=== PATIENT | female | born 1965 | race Caucasian/White ===

== ENCOUNTER → 2022-02-18 15:21 | Outpatient (CLI) | payer OTHER, SELFPAY ==
--- NOTE | ~2022-02-18 | MM_ITS ---
EXAMINATION: MM screening [facility] BI w chrissie HISTORY: Screening mammogram TECHNIQUE: Craniocaudal and mediolateral oblique 3-D tomosynthesis images were obtained and synthetic 2-D images were generated. CAD analysis was submitted and interpreted. COMPARISON: 06/13/2019, 11/19/2017 BREAST PARENCHYMAL COMPOSITION: There are scattered areas of fibroglandular density. FINDINGS: Scattered benign-appearing calcifications are present. There is no suspicious mass, calcifi cation, or architectural distortion to suggest malignancy in either breast. There has been no suspici ous interval change. IMPRESSION: 1. No mammographic evidence of malignancy. 2. Recommend routine screening mammography in one year. BI-RADS Category 2: Benign finding(s). Reviewed, dictated and finalized at location A.
== END ==
PROVIDERS: PCP Internal Medicine Gastroenterology; Visit Provider Internal Medicine Gastroenterology
DX: Z12.31 Encounter for screening mammogram for malignant neoplasm of breast (principal)
CPT/HCPCS: 77063; 77067

== ENCOUNTER 2022-11-20 13:03 | Inpatient (IN) | payer OTHER, SELFPAY ==
[2022-11-20] VITALS (19 sets, daily range): BP systolic 109–140; BP diastolic 54–73; PULSE 83–106; RESP 12–21; TEMP 36.4–36.6; O2SAT 90–100
--- NOTE | ~2022-11-20 | CT_ITS ---
Clinical Indication: Shortness of breath CT Scan of the Chest with Contrast: Technique: Contiguous sections were acquired throughout the chest after intravenous administration of 100 cc of Omnipaque 350. Dose reduction technique was used on this scan by utilizing automated expos ure control and iterative reconstruction technique. The dose-length product (DLP) was 258.31 mGy-cm. Findings: There is no evidence of any significant mediastinal, hilar or axillary lymphadenopathy. There is no f illing defect in the pulmonary arterial tree to suggest pulmonary embolus. There is no evidence of ao rtic dissection or aneurysm. There is no evidence of pleural or pericardial effusion. Moderate emphysema present. There is an irregular nodular opacity in the right upper lobe measuring 1 .5 x 0.8 cm in diameter (axial image 36). There is probable focal scarring at the anteromedial right upper lobe inferiorly. Images through the upper abdomen reveal no abnormalities. Impression: No evidence of pulmonary embolus, aortic dissection, or aortic aneurysm. Moderate emphysema. Probable nodular irregular areas of scarring the right upper lobe, as detailed above. As there are no prior exams for comparison, recommend follow-up CT in 3 months to assess for stability of these opac ities. Alternatively, consider PET scan. Tissue sampling could also be considered, however my degree of suspicion is relatively low, and I would probably favor less invasive, but close follow-up. Reviewed, dictated and finalized at [facility]. Impression: No evidence of pulmonary embolus, aortic dissection, or aortic aneurysm. Moderate emphysema. Probable nodular irregular areas of scarring the right upper lobe, as detailed above. As there are no prior exams for comparison, recommend follow-up CT in 3 months to assess for stability of these opacities. Alternatively, consider PET scan. Tissue sampling could also be considered, however my degree of suspicion is relatively low, and I would probably favor less invasive, but close follow-u p.
--- NOTE | ~2022-11-20 | XR_ITS ---
EXAMINATION: XR chest 1V portable DATE: 11/20/2022 13:34 INDICATION: Cough. TECHNIQUE: A single frontal view of the chest was obtained. COMPARISON: Chest 2 views 09/13/2015 FINDINGS: There are lucencies in the upper lungs, consistent with emphysema. There is mild scarring a t right lung apex. No pleural effusion or pneumothorax. The heart size is normal. IMPRESSION: 1. Emphysema. Reviewed, dictated and finalized at location A. IMPRESSION: 1. Emphysema.
--- NOTE | 2022-11-20 13:09 | ECG_ITS ---
Measurements Intervals [place] Rate: 82 P: 79 RI: 150 QRS: 62 QRSD: 86 T: 65 QT: 347 QTc: 406 Interpretive Statements SINUS RHYTHM RIGHT ATRIAL ENLARGEMENT POSSIBLE LEFT ATRIAL ENLARGEMENT LOW-VOLTAGE QRS IN LIMB LEADS BORDERLINE ECG NO PREVIOUS ECG AVAILABLE FOR COMPARISON Electronically Signed On 11-20-2022 16:54:06 CDT by Norm Stone M.D.
[2022-11-20 13:38] LABS: Basophils Percent Auto 0.5 % (0.2-1.2); Eosinophils Absolute Auto 0.1 K/mm3 (0-0.3); Eosinophils Percent Auto 3.3 % (0-4.4); Hematocrit 43.5 % (37.0-47.0); Immature Granulocyte Absolute 0.01 K/mm3 (0.00-0.031); Immature Granulocyte Percent A 0.3 % (0-0.5); Lymphocytes Absolute Auto 1.06 K/mm3 (0.9-3.2); Lymphocytes Percent Auto 26.6 % (18.3-44.2); Mean Corpuscular HGB Conc 32.2 g/dl (32-36); Mean Corpuscular Hemoglobin 29.5 pg (26-34); Mean Corpuscular Volume 91.6 fl (80-100); Mean Platelet Volume 9.7 fl (7.4-10.4); Monocytes Absolute Auto 0.5 K/mm3 (0.1-0.6); Monocytes Percent Auto 11.3 % (2.6-8.5); Neutrophils Absolute Auto 2.3 K/mm3 (1.3-6.7); Platelet Count Result 183 k/mm3 (150-375); Red Blood Count 4.75 M/mm3 (4.2-5.4); Red Cell Distribution Width 13.7 % (11.5-14.5)
[2022-11-20 13:49] LABS: Alanine Aminotransferase 18 U/L (6-35); Albumin Level 4.3 g/dL (3.5-5.1); Alkaline Phosphatase 96 U/L (38-126); Anion Gap 5 mmol/L (8-16); Aspartate Amino Transferase 28 U/L (14-36); Bilirubin,Total 0.5 mg/dL (0.2-1.3); Blood Urea Nitrogen 9 mg/dL (7-17); Calcium 8.8 mg/dL (8.4-10.2); Carbon Dioxide 31 mmol/L (22-30); Chloride 100 mmol/L (98-107); Estimated CRCL calculation 116 ml/min; Estimated Glomerular Filt Rate > 60; Glucose 100 mg/dL (65-110); Potassium 4.1 mmol/L (3.4-5.0); Sodium 136 mmol/L (137-145)
--- NOTE | 2022-11-20 14:05 | ED.URI ---
HPI - URI/Sore Throat General Chief Complaint: Upper Respiratory Infection Stated Complaint: sob Time Seen by Provider: 11/20/22 13:20 History of Present Illness HPI Narrative: Patient is a 57-year-old female with a history of chronic back pain presenting with URI symptoms. Patient states that for the last several days she has had a productive cough, nasal congestion, and shortness of breath. States that she feels like her chest is tight. She denies chest pain. No lightheadedness. Reports a subjective fever several days ago. States her PCP started her on a Z-Asael a few days ago which she has been taking as prescribed. States that she has been told that she has slight COPD in the past but she does not have an inhaler. Denies headache, numbness or weakness, abdominal pain, nausea or vomiting, leg swelling. Related Data Home Medications Medication Instructions Recorded Confirmed azithromycin 250 mg tablet 250 mg PO DAILY 11/20/22 11/20/22 carisoprodol 350 mg tablet 350 mg PO TID 11/20/22 11/21/22 gabapentin 100 mg capsule 200 mg PO Q8H 11/20/22 11/21/22 montelukast 10 mg tablet 10 mg PO PRN PRN Allergy Symptoms 11/20/22 11/20/22 trazodone 50 mg tablet 50 mg PO PRN PRN Sleep 11/20/22 11/20/22 Allergies Allergy/AdvReac Type Severity Reaction Status Date / Time Penicillins Allergy Unknown Swelling Verified 11/20/22 13:08 of Lip/Tongue/Throat Review of Systems Review of Systems: All systems reviewed & are unremarkable except as noted in HPI and below PMFSH Past Medical History Medical History Chronic back pain Chronic obstructive pulmonary disease Emphysema lung Tobacco dependence Surgical History Surgical History (Updated 11/20/22 @ 18:08 by Ade Flores PA-C) History of section History of lung biopsy Benign pathology. History of partial hysterectomy History of tubal ligation Family History Family History (Updated 11/20/22 @ 18:09 by Ade Flores PA-C) Mother Multiple myeloma Father Asthma Social History Social History Social History: Surrogate medical decision maker: Yann Lambert, son. Code status: Full code. Smoking packs per day: 1 Smoking cigarettes per day: 20.0 Years smoked: 40 Smoking pack-years: 40.00 Smoking status: Light tobacco smoker Tobacco type: cigarettes Second hand tobacco smoke exposure: No Alcohol intake: never Substance use: never Lack of Transportation: No Lack of Food: Never True Current Housing: I Have Housing Concerned About Future Housing: No Difficulty Paying Gas/Electric Bills: No Difficulty Paying for Meds: No Currently Unemployed: No Education: Associate Degree Difficulty w/ Childcare or Family Care: No Additional living arrangements comments: Lives in [place] with her dog. Spiritual care concerns: No Exam Narrative: GENERAL: Well-appearing, well-nourished, and in no acute distress. HEAD: Normocephalic, atraumatic. EYES: PERRLA and EOMI. ENT: Nares clear, no rhinorrhea or epistaxis. Mucous membranes moist. NECK: Supple. CHEST: Diminished breath sounds bilaterally with scattered wheezing, on 2 L nasal cannula saturating upper 90s HEART: Regular rate and rhythm. No murmur heard. Normal peripheral pulses. ABDOMEN: Soft, nontender, nondistended EXTREMITIES: Normal range of motion. No edema. SKIN: Warm, dry, no rash. NEURO: No focal deficits. Alert and oriented x3. PSYCH: Normal mood and affect. Course Vital Signs Vital signs: Vital Signs Temperature 97.9 F 11/20/22 13:06 Pulse Rate 95 11/20/22 13:06 Respiratory Rate 18 11/20/22 13:06 Blood Pressure 140/60 11/20/22 13:06 Pulse Oximetry 93 11/20/22 13:06 Oxygen Delivery Room Air 11/20/22 13:06 Temperature 98.3 F 11/21/22 06:00 Pulse Rate 85 11/21/22 13:33 Respi
[2022-11-20 14:30] LABS: SARS-CoV-2 RNA PCR Negative
[2022-11-20] MEDS: LEVALBUTEROL NEB 1.25 MG/3 ML INHALATION ×2 (14:30→17:25)
[2022-11-20] MEDS: IPRATROPIUM BR 0.02% INH SOLN 0.5 MG/2.5 ML VIAL INHALATION ×2 (14:31→17:25)
[2022-11-20] MEDS: methylPREDNISolone SOD SUCC 125 MG VIAL IV PUSH (14:35)
[2022-11-20] MEDS: SODIUM CHLORIDE 0.9% IV 1,000 ML 999 ML IV CONT (14:36)
[2022-11-20 15:04] LABS: Influenza A QL RT-PCR Negative (Negative); Influenza B QL RT-PCR Negative (Negative); RSV RNA, RT-PCR Negative (Negative); SARS-CoV-2 RNA PCR Negative
--- NOTE | 2022-11-20 17:30 | PM.IMHP ---
H&P: HPI History of Present Illness Date/Time: 11/20/22 17:30 Chief Complaint: Cough and shortness of breath. Narrative: This is a pleasant 57-year-old female smoker with COPD presented to the emergency department via private vehicle from home for evaluation of cough and shortness of breath. Patient provides the following history. She has not felt well for a little over week with congestion, cough productive of yellow phlegm, wheezing, and dyspnea with exertion. She has had some chills but no documented fever. She has been taking NyQuil and ibuprofen at home to treat her symptoms. Two days ago she was prescribed a Z-Asael by her primary physician but she has not gotten better and in fact she feels increasingly short of breath. She has no known sick contacts. She denies exertional chest pain, pleuritic pain, and palpitations. No nausea, vomiting, or diarrhea. She was afebrile on arrival to the emergency department with stable vital signs. She tested negative for influenza, RSV, and COVID. Chest x-ray showed findings which are consistent with emphysema. Her labs were pretty unremarkable. In the ED she was given a dose of Solu-Medrol and a DuoNeb with some improvement though she continues to feel short of breath and is wheezing and she is being admitted in this setting for further treatment. Review of Systems Review of Systems: Twelve systems were reviewed and are negative except for as per HPI. [facility] Past Medical History Medical History Chronic back pain Chronic obstructive pulmonary disease Emphysema lung Tobacco dependence Surgical History Surgical History (Updated 11/20/22 @ 18:08 by Ade Flores PA-C) History of section History of lung biopsy Benign pathology. History of partial hysterectomy History of tubal ligation Family History Family History (Updated 11/20/22 @ 18:09 by Ade Flores PA-C) Mother Multiple myeloma Father Asthma Social History Social History Social History: Surrogate medical decision maker: Yann Lambert, son. Code status: Full code. Smoking packs per day: 1 Smoking cigarettes per day: 20.0 Years smoked: 40 Smoking pack-years: 40.00 Smoking status: Light tobacco smoker Tobacco type: cigarettes Second hand tobacco smoke exposure: No Alcohol intake: never Substance use: never Lack of Transportation: No Lack of Food: Never True Current Housing: I Have Housing Concerned About Future Housing: No Difficulty Paying Gas/Electric Bills: No Difficulty Paying for Meds: No Currently Unemployed: No Education: Associate Degree Difficulty w/ Childcare or Family Care: No Additional living arrangements comments: Lives in [place] with her dog. Spiritual care concerns: No Meds Home Medications and Allergies Home Medications Medication Instructions Recorded Confirmed Type azithromycin 250 mg tablet 250 mg PO DAILY 11/20/22 11/20/22 History carisoprodol 350 mg tablet 350 mg PO QID 11/20/22 11/20/22 History gabapentin 100 mg capsule 100 mg PO QID 11/20/22 11/20/22 History montelukast 10 mg tablet 10 mg PO PRN PRN Allergy Symptoms 11/20/22 11/20/22 History trazodone 50 mg tablet 50 mg PO PRN PRN Sleep 11/20/22 11/20/22 History Allergies Allergy/AdvReac Type Severity Reaction Status Date / Time Penicillins Allergy Unknown Swelling Verified 11/20/22 13:08 of Lip/Tongue/Throat Vital Signs Vital Signs - 24 hr 11/20/22 13:06 11/20/22 14:31 11/20/22 14:45 Temperature 97.9 F Pulse Rate 95 90 93 Respiratory Rate 18 19 19 Blood Pressure 140/60 Pulse Oximetry 93 Oxygen Delivery Room Air 11/20/22 13:15 11/20/22 13:30 11/20/22 13:32 Temperature Pulse Rate 93 90 90 Respiratory Rate 18 17 Blood Pressure 119/66 Pulse Oximetry 90 97 97 Oxygen Delivery 11/20/22
--- NOTE | 2022-11-20 21:57 | ADMGEN ---
This patient, Kassandra Price, was admitted to [facility] Surg Room 325-01. Patient/family oriented to hospital policies and general routines including ID bracelet, bed and alarms, visiting hours, pain management, procedures, bathroom and other care routines, personal items, smoking policy, room service/diet, and visiting hours. Information on how to activate the Rapid Response Team has been discussed. Patient/Family are encouraged to report perceived risks to care and to ask questions if they do not understand what they are told or what they should do.
[2022-11-20] MEDS: methylPREDNISolone SOD SUCC 125 MG VIAL 60 MG IV PUSH (23:18)
[2022-11-21] VITALS (13 sets, daily range): BP systolic 104–117; BP diastolic 50–62; PULSE 78–93; RESP 16–20; TEMP 36.3–36.8; O2SAT 92–100
[2022-11-21] MEDS: methylPREDNISolone SOD SUCC 125 MG VIAL 60 MG IV PUSH ×3 (05:49→17:44)
[2022-11-21 06:56] LABS: Hematocrit 43.4 % (37.0-47.0); Hemoglobin 14.2 g/dL (12.0-15.0); Mean Corpuscular HGB Conc 32.7 g/dl (32-36); Mean Corpuscular Hemoglobin 29.2 pg (26-34); Mean Corpuscular Volume 89.3 fl (80-100); Platelet Count Result 214 k/mm3 (150-375); Red Blood Count 4.86 M/mm3 (4.2-5.4); Red Cell Distribution Width 13.7 % (11.5-14.5); White Blood Count 3.8 K/mm3 (4.5-10.0)
[2022-11-21 07:17] LABS: Anion Gap 7 mmol/L (8-16); Blood Urea Nitrogen 9 mg/dL (7-17); Calcium 9.2 mg/dL (8.4-10.2); Carbon Dioxide 28 mmol/L (22-30); Chloride 103 mmol/L (98-107); Estimated CRCL calculation 115 ml/min; Estimated Glomerular Filt Rate > 60; Glucose 152 mg/dL (65-110); Magnesium 2.2 mg/dL (1.6-2.3); Sodium 138 mmol/L (137-145)
[2022-11-21] MEDS: LEVALBUTEROL NEB 1.25 MG/3 ML INHALATION ×3 (07:33→20:35)
[2022-11-21] MEDS: IPRATROPIUM BR 0.02% INH SOLN 0.5 MG/2.5 ML VIAL INHALATION ×3 (07:33→20:35)
[2022-11-21] MEDS: GABAPENTIN 100 MG CAPSULE PO (08:15)
[2022-11-21] MEDS: carisoprodoL (*CRX) 350 MG TABLET PO ×2 (08:15→21:51)
[2022-11-21] MEDS: guaiFENesin 12 HR 600 MG TABCR 1200 MG PO ×2 (08:15→21:47)
[2022-11-21] MEDS: MONTELUKAST SODIUM 10 MG TABLET PO (08:15)
[2022-11-21] MEDS: ENOXAPARIN 40 MG/0.4 ML SYRINGE SUB-Q (08:15)
--- NOTE | 2022-11-21 12:16 | PM.IMPN ---
Progress Note: A&P Assessment and Plan (1) Acute exacerbation of chronic obstructive pulmonary disease: Code(s): J44.1 - Chronic obstructive pulmonary disease with (acute) exacerbation Status: Acute Assessment and Plan: The patient has had URI symptoms for the last several days which is likely precipitated this COPD exacerbation. She has been started on scheduled bronchodilators and Solu-Medrol. She has been started on azithromycin given increased cough and sputum production. 11/21/2022 interval history: patient is a 57-year-old female with history of smoking presented with complaint of shortness of breath is found to have exacerbation of COPD patient is being treated with methylprednisone and bronchodilator is a concern patient may have atypical pneumonia and being treated with azithromycin, patient states feeling little better compared to when she, will continue to monitor as her symptoms improved will taper Solu-Medrol,. (2) Tobacco dependence: Code(s): F17.200 - Nicotine dependence, unspecified, uncomplicated Status: Acute Assessment and Plan: Smoking cessation is imperative and was discussed. She does request a nicotine patch. (3) Chronic back pain: Code(s): M54.9 - Dorsalgia, unspecified; G89.29 - Other chronic pain Status: Acute Assessment and Plan: Continue gabapentin and carisoprodol. Subjective Date/time seen: 11/21/22 12:16 Cough and shortness of breath. Narrative: This is a pleasant 57-year-old female smoker with COPD presented to the emergency department via private vehicle from home for evaluation of cough and shortness of breath.? Patient provides the following history. She has not felt well for a little over week with congestion, cough productive of yellow phlegm, wheezing, and dyspnea with exertion. She has had some chills but no documented fever. She has been taking NyQuil and ibuprofen at home to treat her symptoms. Two days ago she was prescribed a Z-Asael by her primary physician but she has not gotten better and in fact she feels increasingly short of breath. She has no known sick contacts. She denies exertional chest pain, pleuritic pain, and palpitations. No nausea, vomiting, or diarrhea. She was afebrile on arrival to the emergency department with stable vital signs. She tested negative for influenza, RSV, and COVID. Chest x-ray showed findings which are consistent with emphysema. Her labs were pretty unremarkable. In the ED she was given a dose of Solu-Medrol and a DuoNeb with some improvement though she continues to feel short of breath and is wheezing and she is being admitted in this setting for further treatment. 11/21/2022 interval history: patient is a 57-year-old female with history of smoking presented with complaint of shortness of breath is found to have exacerbation of COPD patient is being treated with methylprednisone and bronchodilator is a concern patient may have atypical pneumonia and being treated with azithromycin, patient states feeling little better compared to when she, will continue to monitor as her symptoms improved will taper Solu-Medrol,. Review of Systems Review of Systems: Twelve systems were reviewed and are negative except for as per HPI. Exam Narrative: Patient is comfortable, NAD HEENT: eyes are clear and none icteric LUNGS: Bilateral fair entry with rhonchi and wheezing ABD: Distended Lower extremities: no edema SKIN: nonjaundiced Neuro: grossly intact. Objective Data Vital Signs Vital Signs: Vital Signs - 24 hr 11/20/22 13:06 11/20/22 14:31 11/20/22 14:45 Temperature 97.9 F Pulse Rate 95 90 93 Respiratory Rate 18 19 19 Blood Pressure 140/60 Pulse Oximetry 93 Oxygen Delivery Room Air Fraction of Inspired Oxygen 11/20/22 13:15 11/20/22 13:30 11/20/22 13:32 Temperature Pulse Rate 93 90 90 Respiratory Rate 18 17 Blood Pressure 119/66 Pulse Oximetry 90 97 97 Oxygen Delivery F
[2022-11-21] MEDS: GABAPENTIN 100 MG CAPSULE 200 MG PO ×2 (14:23→21:47)
[2022-11-22] VITALS (18 sets, daily range): BP systolic 109–115; BP diastolic 59–62; PULSE 66–107; RESP 14–22; TEMP 36.1–37.3; O2SAT 92–99
[2022-11-22] MEDS: methylPREDNISolone SOD SUCC 125 MG VIAL 60 MG IV PUSH ×5 (02:58→23:15)
[2022-11-22] MEDS: LEVALBUTEROL NEB 1.25 MG/3 ML INHALATION ×4 (03:08→19:10)
[2022-11-22] MEDS: IPRATROPIUM BR 0.02% INH SOLN 0.5 MG/2.5 ML VIAL INHALATION ×4 (03:08→19:11)
[2022-11-22 07:00] LABS: Hematocrit 40.4 % (37.0-47.0); Mean Corpuscular HGB Conc 32.2 g/dl (32-36); Mean Corpuscular Hemoglobin 28.6 pg (26-34); Platelet Count Result 199 k/mm3 (150-375); Red Blood Count 4.54 M/mm3 (4.2-5.4); Red Cell Distribution Width 13.9 % (11.5-14.5); White Blood Count 10.8 K/mm3 (4.5-10.0)
[2022-11-22] MEDS: GABAPENTIN 100 MG CAPSULE 200 MG PO ×3 (07:13→21:01)
[2022-11-22 07:20] LABS: Anion Gap 3 mmol/L (8-16); Blood Urea Nitrogen 14 mg/dL (7-17); Calcium 8.8 mg/dL (8.4-10.2); Carbon Dioxide 33 mmol/L (22-30); Chloride 104 mmol/L (98-107); Estimated CRCL calculation 96 ml/min; Estimated Glomerular Filt Rate > 60; Glucose 118 mg/dL (65-110); Magnesium 2.2 mg/dL (1.6-2.3); Sodium 140 mmol/L (137-145)
[2022-11-22] MEDS: ENOXAPARIN 40 MG/0.4 ML SYRINGE SUB-Q (08:40)
[2022-11-22] MEDS: MONTELUKAST SODIUM 10 MG TABLET PO (08:40)
[2022-11-22] MEDS: guaiFENesin 12 HR 600 MG TABCR 1200 MG PO (08:40)
--- NOTE | 2022-11-22 10:28 | PM.IMPN ---
Progress Note: A&P Assessment and Plan (1) Acute exacerbation of chronic obstructive pulmonary disease: Code(s): J44.1 - Chronic obstructive pulmonary disease with (acute) exacerbation Status: Acute Assessment and Plan: The patient has had URI symptoms for the last several days which is likely precipitated this COPD exacerbation. She has been started on scheduled bronchodilators and Solu-Medrol. She has been started on azithromycin given increased cough and sputum production. 11/22/2022 interval history: patient is a 57-year-old female with history of smoking presented with complaint of shortness of breath is found to have exacerbation of COPD patient is being treated with methylprednisone and bronchodilator is a concern patient may have atypical pneumonia and being treated with azithromycin, on 11/21 patient was feeling little better compared to when she arrived however this morning while walking to the bathroom became short of breath appears anxious, she is on RA, will give duo-neb add pulmicort nebs too, also added atarax for anxiety, will continue to monitor as her symptoms improved will taper Solu-Medrol,. (2) Tobacco dependence: Code(s): F17.200 - Nicotine dependence, unspecified, uncomplicated Status: Acute Assessment and Plan: Smoking cessation is imperative and was discussed. She does request a nicotine patch. (3) Chronic back pain: Code(s): M54.9 - Dorsalgia, unspecified; G89.29 - Other chronic pain Status: Acute Assessment and Plan: Continue gabapentin and carisoprodol. Subjective Date/time seen: 11/22/22 10:28 11/22/2022 interval history: patient is a 57-year-old female with history of smoking presented with complaint of shortness of breath is found to have exacerbation of COPD patient is being treated with methylprednisone and bronchodilator is a concern patient may have atypical pneumonia and being treated with azithromycin, on 11/21 patient was feeling little better compared to when she arrived however this morning while walking to the bathroom became short of breath appears anxious, she is on RA, will give duo-neb add pulmicort nebs too, also added atarax for anxiety, will continue to monitor as her symptoms improved will taper Solu-Medrol,. Exam Narrative: Patient is comfortable, NAD HEENT: eyes are clear and none icteric LUNGS: Bilateral fair entry with rhonchi and wheezing ABD: Distended Lower extremities: no edema SKIN: nonjaundiced Neuro: grossly intact. Objective Data Vital Signs Vital Signs: Vital Signs - 24 hr 11/21/22 12:00 11/21/22 13:23 11/21/22 13:33 Temperature Pulse Rate 85 91 85 Respiratory Rate 18 18 Blood Pressure Pulse Oximetry Oxygen Delivery Fraction of Inspired Oxygen 11/21/22 14:00 11/21/22 20:38 11/21/22 20:38 Temperature 98.1 F Pulse Rate 81 92 91 Respiratory Rate 20 18 18 Blood Pressure 112/58 L Pulse Oximetry 92 93 Oxygen Delivery Room Air Fraction of Inspired Oxygen 21 11/21/22 20:46 11/21/22 21:44 11/21/22 20:00 Temperature 97.3 F L Pulse Rate 93 85 88 Respiratory Rate 18 20 Blood Pressure 104/50 L Pulse Oximetry 100 Oxygen Delivery Fraction of Inspired Oxygen 11/21/22 20:00 11/22/22 03:14 11/22/22 03:30 Temperature Pulse Rate 85 96 94 Respiratory Rate 20 22 H 22 H Blood Pressure Pulse Oximetry 100 Oxygen Delivery Room Air Fraction of Inspired Oxygen 21 11/22/22 04:00 11/22/22 00:00 11/22/22 06:00 Temperature 98.2 F Pulse Rate 107 H 77 86 Respiratory Rate 18 Blood Pressure 115/62 Pulse Oximetry 94 Oxygen Delivery Fraction of Inspired Oxygen 11/22/22 08:38 11/22/22 08:55 11/22/22 08:55 Temperature Pulse Rate 96 85 Respiratory Rate 20 Blood Pressure Pulse Oximetry 98 97 Oxygen Delivery Room Air Fraction of Inspired Oxygen 11/22/22 09:07 11/22/22 08:01 Temperature Pulse Rate 8
[2022-11-22 11:02] LABS: Alveolar/Arterial O2 Gradient 45.3 mmHg; Base Excess ABG 1.7 mEq/l (+/-2.0); Fractional Inspired Oxygen 21 %; Oxygen Content ABG 17.9 %vol (16.0-22.0); Oxygen Saturation ABG 93.4 % (95.0-100.0); Oxyhemoglobin 91.6 % THb (90.0-100.0); PCO2 ABG 35.1 mmHg (35.0-45.0); PO2 ABG 62.4 mmHg (80.0-100.0); PO2 FiO2 Ratio Arterial Blood 2.97 %; Total Hemoglobin 13.9 g/dL (12.0-18.0)
[2022-11-22 11:05] LABS: Modified Allen's Test Pass; Site Drawn LEFT RADIAL
[2022-11-22] MEDS: ALPRAZolam (*CRX) 0.25 MG TABLET PO ×2 (11:57→21:00)
[2022-11-22] MEDS: BUDESONIDE RESPULE NEB 0.5 MG/2 ML AMP INHALATION (19:10)
[2022-11-22] MEDS: carisoprodoL (*CRX) 350 MG TABLET PO (21:00)
[2022-11-23] VITALS (10 sets, daily range): BP systolic 112–120; BP diastolic 60–62; PULSE 78–100; RESP 16–18; TEMP 36.3–36.5; O2SAT 92–97
[2022-11-23] MEDS: IPRATROPIUM BR 0.02% INH SOLN 0.5 MG/2.5 ML VIAL INHALATION ×4 (02:37→20:49)
[2022-11-23] MEDS: LEVALBUTEROL NEB 1.25 MG/3 ML INHALATION ×4 (02:39→20:49)
[2022-11-23] MEDS: GABAPENTIN 100 MG CAPSULE 200 MG PO ×3 (05:12→20:30)
[2022-11-23] MEDS: methylPREDNISolone SOD SUCC 125 MG VIAL 60 MG IV PUSH ×4 (05:12→23:24)
[2022-11-23 06:44] LABS: Hematocrit 38.9 % (37.0-47.0); Hemoglobin 12.8 g/dL (12.0-15.0); Mean Corpuscular HGB Conc 32.9 g/dl (32-36); Mean Corpuscular Hemoglobin 29.2 pg (26-34); Mean Corpuscular Volume 88.8 fl (80-100); Mean Platelet Volume 10.1 fl (7.4-10.4); Platelet Count Result 214 k/mm3 (150-375); Red Blood Count 4.38 M/mm3 (4.2-5.4); Red Cell Distribution Width 13.9 % (11.5-14.5)
[2022-11-23 06:53] LABS: Anion Gap 6 mmol/L (8-16); Blood Urea Nitrogen 10 mg/dL (7-17); Carbon Dioxide 31 mmol/L (22-30); Chloride 103 mmol/L (98-107); Estimated CRCL calculation 117 ml/min; Estimated Glomerular Filt Rate > 60; Glucose 133 mg/dL (65-110); Magnesium 2.2 mg/dL (1.6-2.3); Potassium 3.5 mmol/L (3.4-5.0); Sodium 140 mmol/L (137-145)
[2022-11-23] MEDS: BUDESONIDE RESPULE NEB 0.5 MG/2 ML AMP INHALATION ×2 (08:33→20:48)
[2022-11-23] MEDS: ENOXAPARIN 40 MG/0.4 ML SYRINGE SUB-Q (09:23)
[2022-11-23] MEDS: POTASSIUM CHLORIDE 20 MEQ TABLET 40 MEQ PO (09:23)
--- NOTE | 2022-11-23 10:20 | PM.IMPN ---
Progress Note: A&P Assessment and Plan (1) Acute exacerbation of chronic obstructive pulmonary disease: Code(s): J44.1 - Chronic obstructive pulmonary disease with (acute) exacerbation Status: Acute Assessment and Plan: The patient has had URI symptoms for the last several days which is likely precipitated this COPD exacerbation. She has been started on scheduled bronchodilators and Solu-Medrol. She has been started on azithromycin given increased cough and sputum production. 11/23/2022 interval history: patient is a 57-year-old female with history of smoking presented with complaint of shortness of breath is found to have exacerbation of COPD patient is being treated with methylprednisone and bronchodilator is a concern patient may have atypical pneumonia and being treated with azithromycin, on 11/21 patient was feeling little better compared to when she arrived however on 11/21 morning while walking to the bathroom became short of breath appears anxious, she was on RA, gave duo-neb added pulmicort nebs too, also added atarax for anxiety, today patient states CC still feels short of breath unable to take a deep breath, will continue present management and monitor 1 more day, will continue to monitor as her symptoms improved will taper Solu-Medrol, may discharge patient tomorrow (2) Tobacco dependence: Code(s): F17.200 - Nicotine dependence, unspecified, uncomplicated Status: Acute Assessment and Plan: Smoking cessation is imperative and was discussed. She does request a nicotine patch. (3) Chronic back pain: Code(s): M54.9 - Dorsalgia, unspecified; G89.29 - Other chronic pain Status: Acute Assessment and Plan: Continue gabapentin and carisoprodol. Subjective Date/time seen: 11/23/22 10:20 11/23/2022 interval history: patient is a 57-year-old female with history of smoking presented with complaint of shortness of breath is found to have exacerbation of COPD patient is being treated with methylprednisone and bronchodilator is a concern patient may have atypical pneumonia and being treated with azithromycin, on 11/21 patient was feeling little better compared to when she arrived however on 11/21 morning while walking to the bathroom became short of breath appears anxious, she was on RA, gave duo-neb added pulmicort nebs too, also added atarax for anxiety, today patient states CC still feels short of breath unable to take a deep breath, will continue present management and monitor 1 more day, will continue to monitor as her symptoms improved will taper Solu-Medrol, may discharge patient tomorrow Exam Narrative: Patient is comfortable, NAD HEENT: eyes are clear and none icteric LUNGS: Bilateral fair entry with rhonchi and wheezing ABD: Distended Lower extremities: no edema SKIN: nonjaundiced Neuro: grossly intact. Objective Data Vital Signs Vital Signs: Vital Signs - 24 hr 11/22/22 12:02 11/22/22 14:05 11/22/22 15:26 Temperature 99.1 F Pulse Rate 92 85 84 Respiratory Rate 18 20 Blood Pressure 109/61 Pulse Oximetry 92 Oxygen Delivery Fraction of Inspired Oxygen 11/22/22 15:43 11/22/22 19:12 11/22/22 19:15 Temperature Pulse Rate 85 66 Respiratory Rate 20 16 Blood Pressure Pulse Oximetry 99 Oxygen Delivery Room Air Fraction of Inspired Oxygen 11/22/22 20:00 11/22/22 22:00 11/23/22 02:39 Temperature 96.9 F L Pulse Rate 66 86 78 Respiratory Rate 16 14 16 Blood Pressure 114/59 L Pulse Oximetry 99 92 Oxygen Delivery Room Air Fraction of Inspired Oxygen 21 11/23/22 06:00 11/23/22 08:35 11/23/22 08:35 Temperature 97.3 F L Pulse Rate 95 87 Respiratory Rate 18 16 Blood Pressure 120/62 Pulse Oximetry 94 97 Oxygen Delivery Room Air Fraction of Inspired Oxygen 11/23/22 08:50 11/23/22 08:00 Temperature Pulse Rate 89 Respiratory Rate 16 Blood Pressure Pulse Oximetry Oxygen Delivery Ro
--- NOTE | 2022-11-23 11:55 | WPDCDIQUERY2 ---
CDI Query Clarified Diagnosis Clarified Diagnosis: Patient receiving Azithromycin IV Q 24 hours. Atypical Pneumonia is noted in the assessment and plan. Patient presents with productive cough, shortness of breath and chest tightness. Please clarify if Pneumonia has been ruled in, ruled out, or unable to determine. <Roxana Burgos RN - Last Filed: 11/23/22 11:59> Provider Comments Patient with history of COPD and CTA of the chest did not show any pneumonia or consolidation most likely patient had atypical pneumonia <Selina Cramer MD - Last Filed: 12/06/22 16:33>
[2022-11-23] MEDS: AZITHROMYCIN 250 MG TABLET 500 MG PO (20:30)
[2022-11-23] MEDS: carisoprodoL (*CRX) 350 MG TABLET PO (20:34)
[2022-11-24] VITALS (21 sets, daily range): BP systolic 116–128; BP diastolic 56–72; PULSE 78–99; RESP 14–20; TEMP 36.2–36.6; O2SAT 86–94
[2022-11-24] MEDS: GABAPENTIN 100 MG CAPSULE 200 MG PO ×3 (05:30→20:47)
[2022-11-24] MEDS: methylPREDNISolone SOD SUCC 125 MG VIAL 60 MG IV PUSH ×4 (05:30→23:19)
[2022-11-24] MEDS: IPRATROPIUM BR 0.02% INH SOLN 0.5 MG/2.5 ML VIAL INHALATION ×3 (05:36→20:38)
[2022-11-24] MEDS: LEVALBUTEROL NEB 1.25 MG/3 ML INHALATION ×3 (05:37→20:38)
[2022-11-24 06:21] LABS: Hematocrit 40.6 % (37.0-47.0); Hemoglobin 13.5 g/dL (12.0-15.0); Mean Corpuscular HGB Conc 33.3 g/dl (32-36); Mean Corpuscular Hemoglobin 29.3 pg (26-34); Mean Corpuscular Volume 88.1 fl (80-100); Platelet Count Result 232 k/mm3 (150-375); Red Blood Count 4.61 M/mm3 (4.2-5.4); Red Cell Distribution Width 14.2 % (11.5-14.5); White Blood Count 11.7 K/mm3 (4.5-10.0)
[2022-11-24 06:25] LABS: Anion Gap 7 mmol/L (8-16); Blood Urea Nitrogen 16 mg/dL (7-17); Calcium 9.1 mg/dL (8.4-10.2); Carbon Dioxide 30 mmol/L (22-30); Chloride 100 mmol/L (98-107); Estimated CRCL calculation 96 ml/min; Estimated Glomerular Filt Rate > 60; Glucose 127 mg/dL (65-110); Magnesium 2.3 mg/dL (1.6-2.3); Sodium 137 mmol/L (137-145)
[2022-11-24] MEDS: SODIUM CHLORIDE NASAL GEL 14.1 GM 1 APPLIC NASAL ×2 (09:11→20:46)
[2022-11-24] MEDS: SALINE 0.65% NAS SOLN 44 ML BTL 1 SPRAY NASAL ×2 (09:11→20:46)
[2022-11-24] MEDS: ENOXAPARIN 40 MG/0.4 ML SYRINGE SUB-Q (09:11)
[2022-11-24] MEDS: BUDESONIDE RESPULE NEB 0.5 MG/2 ML AMP INHALATION ×2 (09:44→20:38)
--- NOTE | 2022-11-24 11:37 | PM.IMPN ---
Progress Note: A&P Assessment and Plan (1) Acute exacerbation of chronic obstructive pulmonary disease: Code(s): J44.1 - Chronic obstructive pulmonary disease with (acute) exacerbation Status: Acute Assessment and Plan: The patient has had URI symptoms for the last several days which is likely precipitated this COPD exacerbation. She has been started on scheduled bronchodilators and Solu-Medrol. She has been started on azithromycin given increased cough and sputum production. 11/24/2022 interval history: patient is a 57-year-old female with history of smoking presented with complaint of shortness of breath is found to have exacerbation of COPD patient is being treated with methylprednisone and bronchodilator is a concern patient may have atypical pneumonia and being treated with azithromycin, on 11/21 patient was feeling little better compared to when she arrived however on 11/21 morning while walking to the bathroom became short of breath appears anxious, she was on RA, gave duo-neb added pulmicort nebs too, also added atarax for anxiety, today patient states she still feels short of breath unable to take a deep breath, her Oxygen saturarion is dropping with at rest and with exertion, will do CTA of chest which did not show PE or pneumonia however CT scna is concerning for possible nodule, will consult pulomonologist, and further recommendation to follow, will continue present management and monitor 1 more day, will continue to monitor, may discharge patient tomorrow (2) Tobacco dependence: Code(s): F17.200 - Nicotine dependence, unspecified, uncomplicated Status: Acute Assessment and Plan: Smoking cessation is imperative and was discussed. She does request a nicotine patch. (3) Chronic back pain: Code(s): M54.9 - Dorsalgia, unspecified; G89.29 - Other chronic pain Status: Acute Assessment and Plan: Continue gabapentin and carisoprodol. Subjective Date/time seen: 11/24/22 11:37 The patient has had URI symptoms for the last several days which is likely precipitated this COPD exacerbation. She has been started on scheduled bronchodilators and Solu-Medrol. She has been started on azithromycin given increased cough and sputum production. 11/24/2022 interval history: patient is a 57-year-old female with history of smoking presented with complaint of shortness of breath is found to have exacerbation of COPD patient is being treated with methylprednisone and bronchodilator is a concern patient may have atypical pneumonia and being treated with azithromycin, on 11/21 patient was feeling little better compared to when she arrived however on 11/21 morning while walking to the bathroom became short of breath appears anxious, she was on RA, gave duo-neb added pulmicort nebs too, also added atarax for anxiety, today patient states she still feels short of breath unable to take a deep breath, her Oxygen saturarion is dropping with at rest and with exertion, will do CTA of chest which did not show PE or pneumonia however CT scna is concerning for possible nodule, will consult pulomonologist, and further recommendation to follow, will continue present management and monitor 1 more day, will continue to monitor, may discharge patient tomorrow Exam Narrative: Patient is comfortable, NAD HEENT: eyes are clear and none icteric LUNGS: Bilateral fair entry with rhonchi and wheezing ABD: Distended Lower extremities: no edema SKIN: nonjaundiced Neuro: grossly intact. Objective Data Vital Signs Vital Signs: Vital Signs - 24 hr 11/23/22 14:32 11/23/22 14:00 11/23/22 14:47 Temperature 97.7 F Pulse Rate 88 89 100 Respiratory Rate 16 16 16 Blood Pressure 113/60 Pulse Oximetry 93 Oxygen Delivery Oxygen Flow Rate 11/23/22 20:51 11/23/22 20:00 11/23/22 21:07 Temperature Pulse Rate 92 94 Respiratory Rate 16 16 Blood Pressure Pulse Oximetry Oxygen Delivery Jaquelin
[2022-11-24] MEDS: CIPROFLOXACIN 500 MG TAB PO ×2 (15:25→23:19)
--- NOTE | 2022-11-24 15:33 | HOMEO2EVAL ---
Evaluation was performed at [facility] Home Oxygen Evaluation RC: Home Oxygen (O2) Evaluation Start: 11/24/22 07:51 Freq: ONCE Status: Active Protocol: RPE Activity Type Activity Date Activity User E-sign Co-sign Detail Recorded Client Recorded Date Recorded By Document 11/24/22 15:00 RODY [email or web address] 11/24/22 15:33 RODY Document 11/24/22 15:01 RODY [email or web address] 11/24/22 15:33 RODY Document 11/24/22 15:02 RODY [email or web address] 11/24/22 15:33 RODY Document 11/24/22 15:03 RODY [email or web address] 11/24/22 15:33 RODY Document 11/24/22 15:15 RODY [email or web address] 11/24/22 15:33 RODY 11/24/22 11/24/22 11/24/22 15:00 15:01 15:02 Home O2 Evaluation [Oxygen] -Test Phase Resting Exercise Exercise -Oxygen Delivery Room Air Room Air Nasal Cannula -Oxygen Flow Rate (L/min) 1 [Pulse Oximetry] -Pulse Oximetry (90-100 %) 90 86 L 87 L [Charges] -Treatment Charges O2 Evaluation - O2 Evaluation - Inpatient Inpatient 11/24/22 11/24/22 15:03 15:15 Home O2 Evaluation [Oxygen] -Test Phase Exercise Resting -Oxygen Delivery Nasal Cannula Room Air -Oxygen Flow Rate (L/min) 2 [Pulse Oximetry] -Pulse Oximetry (90-100 %) 89 L 91 [Charges] -Treatment Charges
--- NOTE | 2022-11-24 15:38 | PCRCNOTE ---
PT REQUIRES 2L HOME O2 WITH ACTIVITY. PT WANTS A POC ONLY. VIEMED WILL BE DME IF SHE D/C HOME WITH HOME O2. PT ISN'T SURE IF SHE WILL USE THE HOME O2 OR WANTS IT IN THE HOME. AWAITING FURTHER DETAILS ON D/C
[2022-11-24] MEDS: ALPRAZolam (*CRX) 0.25 MG TABLET PO (20:46)
[2022-11-24] MEDS: carisoprodoL (*CRX) 350 MG TABLET PO (20:47)
[2022-11-25] VITALS (7 sets, daily range): BP systolic 124; BP diastolic 56; PULSE 79–98; RESP 16–18; TEMP 36.4; O2SAT 92
[2022-11-25] MEDS: LEVALBUTEROL NEB 1.25 MG/3 ML INHALATION ×2 (03:12→08:38)
[2022-11-25] MEDS: IPRATROPIUM BR 0.02% INH SOLN 0.5 MG/2.5 ML VIAL INHALATION ×2 (03:13→08:38)
[2022-11-25] MEDS: methylPREDNISolone SOD SUCC 125 MG VIAL 60 MG IV PUSH (05:15)
[2022-11-25] MEDS: GABAPENTIN 100 MG CAPSULE 200 MG PO (05:15)
[2022-11-25 06:06] LABS: Hematocrit 41.3 % (37.0-47.0); Hemoglobin 13.5 g/dL (12.0-15.0); Mean Corpuscular HGB Conc 32.7 g/dl (32-36); Mean Corpuscular Hemoglobin 29.7 pg (26-34); Mean Platelet Volume 9.5 fl (7.4-10.4); Platelet Count Result 244 k/mm3 (150-375); Red Blood Count 4.54 M/mm3 (4.2-5.4); Red Cell Distribution Width 14.4 % (11.5-14.5); White Blood Count 9.8 K/mm3 (4.5-10.0)
[2022-11-25 06:42] LABS: Anion Gap 9 mmol/L (8-16); Blood Urea Nitrogen 15 mg/dL (7-17); Calcium 8.6 mg/dL (8.4-10.2); Carbon Dioxide 29 mmol/L (22-30); Chloride 100 mmol/L (98-107); Estimated CRCL calculation 96 ml/min; Estimated Glomerular Filt Rate > 60; Glucose 130 mg/dL (65-110); Magnesium 2.4 mg/dL (1.6-2.3); Potassium 3.7 mmol/L (3.4-5.0); Sodium 138 mmol/L (137-145)
[2022-11-25] MEDS: BUDESONIDE RESPULE NEB 0.5 MG/2 ML AMP INHALATION (08:38)
--- NOTE | 2022-11-25 09:36 | PM.DS ---
DS: Admitting Diagnosis Discharge Date 11/25/2022 Admitting Diagnosis Cough and shortness of breath. DS: Discharge Diagnosis Discharge Diagnosis (1) Acute exacerbation of chronic obstructive pulmonary disease: Code(s): J44.1 - Chronic obstructive pulmonary disease with (acute) exacerbation Status: Acute Assessment and Plan: The patient has had URI symptoms for the last several days which is likely precipitated this COPD exacerbation. She has been started on scheduled bronchodilators and Solu-Medrol. She has been started on azithromycin given increased cough and sputum production. 11/24/2022 interval history: patient is a 57-year-old female with history of smoking presented with complaint of shortness of breath is found to have exacerbation of COPD patient is being treated with methylprednisone and bronchodilator is a concern patient may have atypical pneumonia and being treated with azithromycin, on 11/21 patient was feeling little better compared to when she arrived however on 11/21 morning while walking to the bathroom became short of breath appears anxious, she was on RA, gave duo-neb added pulmicort nebs too, also added atarax for anxiety, today patient states she still feels short of breath unable to take a deep breath, her Oxygen saturarion is dropping with at rest and with exertion, will do CTA of chest which did not show PE or pneumonia however CT scna is concerning for possible nodule, will consult pulomonologist, and further recommendation to follow, will continue present management and monitor 1 more day, will continue to monitor, may discharge patient tomorrow (2) Tobacco dependence: Code(s): F17.200 - Nicotine dependence, unspecified, uncomplicated Status: Acute Assessment and Plan: Smoking cessation is imperative and was discussed. She does request a nicotine patch. (3) Chronic back pain: Code(s): M54.9 - Dorsalgia, unspecified; G89.29 - Other chronic pain Status: Acute Assessment and Plan: Continue gabapentin and carisoprodol. DS: Summary Hospital Course Reason for hospitalization: Cough and shortness of breath. Narrative: This is a pleasant 57-year-old female smoker with COPD presented to the emergency department via private vehicle from home for evaluation of cough and shortness of breath.? Patient provides the following history. She has not felt well for a little over week with congestion, cough productive of yellow phlegm, wheezing, and dyspnea with exertion. She has had some chills but no documented fever. She has been taking NyQuil and ibuprofen at home to treat her symptoms. Two days ago she was prescribed a Z-Asael by her primary physician but she has not gotten better and in fact she feels increasingly short of breath. She has no known sick contacts. She denies exertional chest pain, pleuritic pain, and palpitations. No nausea, vomiting, or diarrhea. She was afebrile on arrival to the emergency department with stable vital signs. She tested negative for influenza, RSV, and COVID. Chest x-ray showed findings which are consistent with emphysema. Her labs were pretty unremarkable. In the ED she was given a dose of Solu-Medrol and a DuoNeb with some improvement though she continues to feel short of breath and is wheezing and she is being admitted in this setting for further treatment. Hospital Course: patient is a 57-year-old female with history of smoking presented with complaint of shortness of breath is found to have exacerbation of COPD patient is being treated with methylprednisone and bronchodilator is a concern patient may have atypical pneumonia and being treated with azithromycin, on 11/21 patient was? feeling little better compared to when she arrived however on 11/21? morning while walking to the bathroom became short of breath appears anxious, she was on RA, gave duo-neb added pulmicort nebs too, also added atarax for anxiety, today patient states she? still fe
--- NOTE | 2022-11-25 10:08 | PCRCNOTE ---
PT DECLINED HOME OXYGEN.
== END 2022-11-25 10:30 | disposition home or self-care (01) | DRG 192 ==
LOC: ANHED 13:32 → ANH3MEDSUR 19:11
PROVIDERS: Emergency Medicine; Physician Assistant; Admitting Provider Hospitalist; Emergency Provider Emergency Medicine; PCP Internal Medicine Gastroenterology; Visit Provider Family Medicine
DX: J44.1 Chronic obstructive pulmonary disease with (acute) exacerbation (principal); M54.9 Dorsalgia, unspecified; G89.29 Other chronic pain; Z20.822 Contact with and (suspected) exposure to COVID-19; F17.210 Nicotine dependence, cigarettes, uncomplicated; R09.02 Hypoxemia; F41.9 Anxiety disorder, unspecified
CPT/HCPCS: 36415; 36600; 71045; 71275; 80048; 80053; 82805; 83605; 83735; 85025; 85027; 87040; 87070; 87077; 87186; 87205; 87637; 93005; 94618; 94640; 94667; 96361; 96365; 96372; 96374; 96375; 96376; 99285; A9270; G0378; J0456; J1650; J2930; J7030; Q9967; U0003; U0005

== ENCOUNTER 2023-01-28 07:56 | Outpatient (CLI) | payer OTHER, SELFPAY ==
--- NOTE | ~2023-01-28 | XR_ITS ---
EXAMINATION: XR chest 2V 01/28/2023 08:14 INDICATION: Shortness of breath. Bilateral leg swelling PROCEDURE: 2 view chest COMPARISON: 11/20/2022 FINDINGS: The lungs are clear. There is apical pleural thickening/scarring. The cardiomediastinal sue houette is within normal limits. There are no pleural effusions. There is no pneumothorax suspected . IMPRESSION: 1: NO ACUTE CARDIOPULMONARY DISEASE. Reviewed, dictated and finalized at location L.
== END 2023-01-28 07:57 ==
LOC: MICIMG 07:58
PROVIDERS: PCP Internal Medicine Gastroenterology; Visit Provider Internal Medicine Gastroenterology
DX: R06.02 Shortness of breath (principal); R60.0 Localized edema
CPT/HCPCS: 71046

== ENCOUNTER → 2023-04-16 12:18 | Outpatient (CLI) | payer OTHER, SELFPAY ==
--- NOTE | ~2023-04-16 | MM_ITS ---
EXAMINATION: MM screening radha BI w chrissie HISTORY: Screening mammogram TECHNIQUE: Craniocaudal and mediolateral oblique 3-D tomosynthesis images were obtained and synthetic 2-D images were generated. CAD analysis was submitted and interpreted. COMPARISON: 02/18/2022, 06/13/2019 bilateral screening mammogram examinations BREAST PARENCHYMAL COMPOSITION: There are scattered areas of fibroglandular density. FINDINGS: There is no evidence of suspicious mass, calcification, or architectural distortion to sugg est malignancy in either breast. There has been no suspicious interval change. IMPRESSION: 1. No mammographic evidence of malignancy. 2. Recommend routine screening mammography in one year. BI-RADS Category 1: Negative Reviewed, dictated and finalized at location A.
== END ==
PROVIDERS: PCP Internal Medicine Gastroenterology; Visit Provider Internal Medicine Gastroenterology
DX: Z12.31 Encounter for screening mammogram for malignant neoplasm of breast (principal)
CPT/HCPCS: 77063; 77067

== ENCOUNTER 2024-09-12 12:36 | Outpatient (CLI) | payer MEDICARE, SELFPAY ==
--- NOTE | ~2024-09-12 | MM_ITS ---
EXAMINATION: MM screening radha BI w chrissie HISTORY: Screening TECHNIQUE: Craniocaudal and mediolateral oblique 3-D tomosynthesis images were obtained and synthetic 2-D images were generated. CAD analysis was submitted and interpreted. COMPARISON: Comparison to multiple prior studies sequentially, with oldest reviewed study dated 11/19. BREAST PARENCHYMAL COMPOSITION: Not dense: There are scattered areas of fibroglandular density. FINDINGS: There is no evidence of suspicious mass, calcification, or architectural distortion to sugg est malignancy in either breast. There has been no suspicious interval change. IMPRESSION: 1. No mammographic evidence of malignancy. 2. Recommend routine screening mammography in one year. BI-RADS Category 1: Negative Reviewed, dictated and finalized at location B. [facility]
== END 2024-09-12 12:37 | disposition home or self-care (01) ==
LOC: MICIMG 12:45
PROVIDERS: PCP Internal Medicine; Visit Provider Internal Medicine Gastroenterology
DX: Z12.31 Encounter for screening mammogram for malignant neoplasm of breast (principal)
CPT/HCPCS: 77063; 77067

== ENCOUNTER 2025-05-29 12:00 | Outpatient (CLI) | payer MEDICARE, MEDICAID, SELFPAY ==
--- NOTE | ~2025-05-29 | PE_ITS ---
EXAMINATION: PET skull to mid thigh DATE: 05/29/2025 14:11 INDICATION: Mass of upper lobe of right lung. TECHNIQUE: Blood glucose level was 85 mg/dL. 10.613 mCi of 18-fluorodeoxyglucose (18-FDG) was administered i.v. Low dose computed tomography (CT) images were acquired from the base of the brain to the proximal thighs for attenuation correction and anatomic localization. Automated exposure control was employed. Dose-length product (DLP) was 851 mGy-cm. Positron emission tomography (PET) images were acquired in the same distribution. COMPARISON: Chest CT 11/24/2022 FINDINGS: Head/neck: There are no pathologically enlarged lymph nodes. Chest: There is a 5.7 x 4.4 cm mass in right lung upper lobe with maximum SUV of 29. There is moderate emphysema. There is mild scarring at left lung apex. No pleural effusion. The heart size is normal. There are coronary artery calcifications. No pericardial effusion. There are ill-defined enlarged right hilar lymph nodes with maximum SUV of 10.9. Abdomen/pelvis/proximal thighs: The liver, gallbladder, spleen, pancreas, adrenal glands, and kidneys are normal. There are no dilated loops of bowel. The appendix is normal. There are no pathologically enlarged lymph nodes. There is no free intraperitoneal fluid. There is no osseous malignancy. IMPRESSION: 1. 5.7 x 4.4 cm mass in right lung upper lobe with increased activity, consistent with primary bronchogenic carcinoma. 2. Enlarged right hilar lymph nodes with increased activity, consistent with metastatic disease. 3. Moderate emphysema. Reviewed, dictated and finalized at location E. IMPRESSION: 1. 5.7 x 4.4 cm mass in right lung upper lobe with increased activity, consiste nt with primary bronchogenic carcinoma. 2. Enlarged right hilar lymph nodes with increased activity, consistent with me tastatic disease. 3. Moderate emphysema.
--- OUTSIDE RECORDS SUMMARY | 2025-05-29 14:52 | XMS_ITS | Clinical Summary ---
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 Gender Identity Not on file Sexual Orientation Not on file Plan of Treatment Health Maintenance Due Date Last Done Comments Hepatitis C Virus (HCV) Screening 1964 TdaP Immunization 1964 Pap Smear 1985 Cervical Cancer Screening (CCS) 1994 HPV/Cotest 1994 Cologuard 2009 Colonoscopy 2009 Colorectal Cancer Screening 2009 Immunochemical Fecal Occult Blood 2009 Pneumococcal Immunization (5 0+ years) (1 of 1 - PCV) 2014 Zoster Immunization (1 of 2) 2014 Influenza Immunization (#1) 2025 SARS-COV-2 Immunization ( - season) 2025 Respiratory Syncytial Virus (RSV) Immunization (Adult) (1 - 1-dose 75+ series) 2039 Hepatitis B Immunization Aged Out No longer eligible based on patient's age to complete this topic Human Papillomavirus (HPV) Immunization Aged Out No longer eligible b ased on patient's age to complete this topic Meningococcal Immunization (ACWY) Aged Out No longer eligible based on patient's age to complete this topic Rotavirus Immunization Aged Out No lo nger eligible based on patient's age to complete this topic
--- OUTSIDE RECORDS SUMMARY | 2025-05-29 14:52 | XMS_ITS | Clinical Summary ---
Author Organization [facility] [id number] [place] [address] Care Team Providers Care Dog Control Officer Name Role Phone Gege Robertson MD Primary Care Provider [phone] Allergies Active Allergy Reactions Criticality Noted Date Comments Penicillins Hives,Swelling Medium 07/11/2020 Medications gabapentin (NEURONTIN) 100 mg capsule Take by mouth 3 (three) times a day Active carisoprodoL (SOMA) 350 mg tablet Take 350 mg by mouth 4 (four) times a day as needed Active fluticasone propion-salmete roL (ADVAIR DISKUS) 250-50 mcg/dose diskus inhaler Inhale 1 puff 2 (two) times a day Rinse mouth with water after use. Do not swallow. Active albuterol (PROAIR RESPICLICK) 90 mcg/actuation inhaler Inhale 2 puffs every 6 (six) hours as needed for wheezing Active traMADoL (ULTRAM) 50 mg tablet Take 1 tablet (50 mg total) by mouth every 8 (eight) hours as needed for pain 20 tablet 07/14/2020 Active Active Problems Patient Care Coordination No te Formatting of this note migh t be different from the original. Ms. Kassandra Price is a 54-year-old with a lung nodules. She initially was being worked up for back surgery. During his workup she had an abnormal EKG. She was subsequently evaluated by a city director who ordered a chest x-ray which showed concerns for a lung cancer. On 06/04/2020 the patient underwent a CT of the chest which noted a irregular lobulated masses in the right upper lobe. The largest measures 1.9 x 1.2 cm. The more peripheral nodule measures 1.2 cm. On 06/18/2020 the patient underwent a PET scan which showed a 1.5 x 1.0 cm spiculated nodule in the right middle lobe with a maximum SUV of 3.8. A 1.1 cm nodule located in the right upper lobe has a maximum SUV of 5.1 with an adjacent 1 cm spiculated opacity with a maximum SUV of 2.2. There is no hilar mediastinal or supraclavicular adenopathy. On 07/11/2020 the patient underwent a CT-guided biopsy of the right lung nodule. Unfortunately, she developed a pneumothorax and was subsequently admitted to the hospital with a chest tube. Cytology from the biopsy was negative for malignancy and showed mild chronic inflammation. On 06/04/2020 the patient underwent pulmonary function testing which showed an FEV1 of 45% of predicted and a post bronchodilator FEV1 of 54% of predicted. Her diffusing capacity was 45% of predicted. On 06/04/2020 the patient underwent a transthoracic echocardiogram which noted her left ventricular ejection fraction to be measured at 60%. Patient has a history of atrial fibrillation. Patient is a current smoker. Patient presents today for further surgical evaluation. Problem Noted Date Diagnosed Date Pneumothorax after biopsy 07/11/2020 Assessment & Plan (07/11/2020 3:01 PM DETAIL DRAFTER): S/p chest tube insertion. To Suction. Pulmonary has been consulted for which we appreciate their evaluation and recommendations. Oxygen as needed. Abnormal PET of right lung 07/11/2020 Assessment & Plan (07/11/2020 3:00 PM DETAIL DRAFTER): Records to be obtained from Dr. Kennedy, Dr. Cobos and Dr. Mares's office. History of tobacco abuse. recommended for right upper lung and partial middle lobe thoracotomy per pt. Tobacco abuse 07/11/2020 Assessment & Plan (07/11/2020 3:00 PM DETAIL DRAFTER): Nicotine patch ordered. Cessation encouraged. Bulging lumbar disc 07/11/2020 Assessment & Plan (07/11/2020 3:01 PM DETAIL DRAFTER): Was scheduled for back surgery, now on hold for concerns of lung cancer. Prn analgesics and muscle relaxants. Gabapentin. COPD (chronic obstructive pulmonary disease) 10/2019 Assessment & Plan (07/11/2020 3:01 PM DETAIL DRAFTER): Not in exacerbation. Prn duo-nebs. History of atrial fibrillation 07/11/2020 Assessment & Plan (07/11/2020 3:03 PM DETAIL DRAFTER): Per anesthesia note, no prior records available for review in care everywhere or [facility]. Check ekg. Surgical History Surgery Date Site/Laterality Comments TUBAL LIGATION HYSTERECTOMY partial SECTION CT CHEST TUBE INSERTION LEFT 07/11/2020 N/A Medical History Medical History Date Comments Atrial fibrillation (HCC) COPD (chronic obstructive pulmonary disease) Bulging lumbar disc Tobacco abuse Social History Tobacco Use Types Packs/Day Years Used Date Smoking Tobacco: Every Day Cigarettes Tobacco Cessation:Ready to Q uit: Yes; Counseling Given: Yes Comments:trying to slow down Alcohol Use Standard Drinks/Week Comments Not Currently 0 (1 standard drink = 0.6 oz pur e alcohol) AUDIT-C Answer Date Recorded Q1: How often do you have a drink containing alc ohol? Never 07/11/2020 Average Number of Drinks Not on file 020 Frequency of Binge Drinking Not on file 10/2019 Personal Safety Answer Date Recorded Getting School Help Needed Not on file 10/03 Comments No Sex and Gender Information Value Date Recorded Sex Assigned at Not on file Legal Sex Female 9:03 PM DETAIL DRAFTER Gender Identity Not on file Sexual Orientation Not on file Obstetrics History Last Filed Vital Signs Vital Sign Reading Time Taken Comments Blood Pressure 111/72 07/17/2020 8:39 AM DETAIL DRAFTER Pulse 80 07/17/2020 8:39 AM DETAIL DRAFTER Temperature 36.6 C (97.9 F) 07/17/2020 8:39 AM DETAIL DRAFTER Respiratory Rate 16 07/17/2020 8:39 AM DETAIL DRAFTER Oxygen Saturation 94% 07/17/2020 8:39 AM DETAIL DRAFTER Inhaled Oxygen Concentration - - Weight 60.8 kg (134 lb) 07/11/2020 2:10 PM DETAIL DRAFTER Height 157.5 cm (5' 2) 07/11/2020 2:10 PM DETAIL DRAFTER Body Mass Index 24.51 07/11/2020 2:10 PM DETAIL DRAFTER Plan of Treatment Health Maintenance Due Date Last Done Comments Breast Cancer Screening-Mammogram 1964 Colon Cancer Screening-Colonoscopy 1964 Depression Screening 1964 Hepatitis C Screening 1964 DTaP/Tdap/Td Vaccine (1 - Tdap) 1975 Hepatitis B Screening 1982 Regular Well Visit/Exam 18-64 1982 Zoster Vaccine (1 of 2) 2014 Covid-19 Vaccine (4 - 2024- season) 2025 06/26/2021, 11/08/2020, 10/18/2020 Influenza Vaccine (#1) 2025 , 05/03/2023, 06/01/2022, Additional history exists Pneumococcal vaccine <65 Aged Out No longer eligible based on patient's age to complete this topic Advance Directives For more information, please contact: [phone] * Full Code (Latest Code Status on File) Date Activated Date Inactivated Comments 07/11/2020 9:45 AM 07/11/2020 2:11 PM Care Teams Dog Control Officer Relationship Specialty [place] [address] [place] [address] PCP - General 05/02/20
--- OUTSIDE RECORDS SUMMARY | 2025-05-29 14:52 | XMS_ITS | Clinical Summary ---
Author Organization [facility] Momo orozco Hanna Address [address] [place] [address] Care Team Providers Care Gas Torch Solderer Name Role Phone Unavailable Primary Care Provider Unavailabl e Allergies Active Allergy Reactions Criticality Noted Date Comments Levofloxacin Other (See Comments) 05/21/2025 Levaquin Penicillins Hives,Unknown,Swelling High 07/11/2020 Medications baclofen (LIORESAL) 10 mg tablet Take 1 Tablet by mouth 2 times daily. 04/25/2025 Active gabapentin (NEURONTIN) 100 mg capsule Take 200 mg by mouth 3 times daily. Active Active Problems No known active problems Encounters Date Type Department Care Team Description 05/22/2025 External Device Data STL ABSTRACTION Provider, Abstract 05/22/2025 External Device Data STL ABSTRACTION Provider, Abstract 05/22/2025 External Device Data STL ABSTRACTION Provider, Abstract 05/21/2025 10:30 AM CDT Office Visit [facility] Oncology and Hematology - [place] [address] [facility] [address] [place] [id number] Romie Long MD Mass of upper lobe of right lung (Primary Dx) from Last 3 Months Family History Medical History Relation Name Comments No Known Problems Brother 1 Diabetes Brother 2 Diabetes Brother 3 No Known Problems Child 1 No Known Problems Child 2 Multiple myeloma Mother Lung Cancer Sister 1 Cancer Sister 2 No Known Problems Sister 3 No Known Problems Sister 4 Relation Name Status Comments Brother 1 Brother 2 Brother 3 Alive Child 1 Child 2 Alive Father Mother Sister 1 Sister 2 Alive Sister 3 Alive Sister 4 Alive Social History Tobacco Use Types Packs/Day Years Used Date Smoking Tobacco: Former Cigarettes 1 33 1 - 05/21/2023 Smokeless Tobacco: Never Tobacco Cessation:Counseling Given: Not Answered Alcohol Use Standard Drinks/Week Comments Yes 0 (1 standard drink = 0.6 oz pur e alcohol) Rarely Comments Unknown Sex and Gender Information Value Date Recorded Sex Assigned at Not on file Legal Sex Female 10:09 AM CDT Gender Identity Not on file Sexual Orientation Not on file Last Filed Vital Signs Vital Sign Reading Time Taken Comments Blood Pressure 125/68 05/21/2025 10:52 AM CDT Pulse 67 05/21/2025 10:52 AM CDT Temperature 36.4 C (97.5 F) 05/21/2025 10:52 AM CDT Respiratory Rate 16 05/21/2025 10:52 AM CDT Oxygen Saturation 95% 05/21/2025 10:52 AM CDT Inhaled Oxygen Concentration - - Weight 68.3 kg (150 lb 9.6 oz) 05/21/2025 10:52 AM CDT Height 160 cm (5' 3) 05/21/2025 10:52 AM CDT Body Mass Index 26.68 05/21/2025 10:52 AM CDT Plan of Treatment Upcoming Encounters Date Type Department Care Team (Late st Contact Info) Description 06/05/2025 4:30 PM CDT Telephone Check Up [facility] Oncology and Hematology - [place] [address] [facility] [address] [place] [address] Romie Long MD [address] [facility] [address] [place] [address] Health Maintenance Due Date Last Done Comments Pre-Diabetes and Diabetes Screening 1964 DTAP/TDAP/TD VACCINES (1 - Tdap) 1983 HPV/Cotest (21-29) 1985 CERVICAL CANCER SCREENING 1994 HPV/Cotest (30-65) 1994 PAP SMEAR 1994 BREAST CANCER SCREENING 2004 COLORECTAL SCREENING 2009 Colorectal Cancer Screening 2009 FIT-DNA Q 3 years 2009 FIT/FOBT Q 1 year 2009 Flex Sig/CT Colonography Q 5 years 2009 Lung Cancer Screening 2014 RSV VACCINE (60+ or ) (1 - Risk 50-74 years 1-dose series) 2014 ZOSTER VACCINE (1 of 2) 2014 INFLUENZA VACCINE (#1) 2025 , 05/03/2023, 06/01/2022, Additional history exists COVID-19 Vaccine ( season) 2025 05/03/2023, 05/14/2022, 06/26/2021, Additional history exists HEPATITIS B VACCINES Aged Out No long er eligible based on patient's age to complete this topic Insurance MEDICARE PART A AND B MEDICAID [place]
== END 2025-05-29 12:01 | disposition home or self-care (01) ==
PROVIDERS: PCP Internal Medicine; Visit Provider Internal Medicine Hematology & Oncology
DX: R91.8 Other nonspecific abnormal finding of lung field (principal); R59.0 Localized enlarged lymph nodes; J43.9 Emphysema, unspecified
CPT/HCPCS: 78815; A9552

== ENCOUNTER 2025-07-04 11:23 | Outpatient (CLI) | payer MEDICARE, MEDICAID, SELFPAY ==
--- OUTSIDE RECORDS SUMMARY | 2025-07-04 10:30 | XMS_ITS | Encounter Summary ---
Author Organization [facility] Address [address] [place] [address] Care Team Providers Care Adventure Guide Name Role Phone Mike Holt MD Primary Care Provider Reason for Referral * Radiation Therapy (Urgent) - Pending Review Specialty Diagnoses / Procedures Referred By Contac t Referred To Contact Diagnoses Mass of upper lobe of right lung Procedures TN OFFICE/OUTPATIENT ESTABLISHED MOD MDM 30 MIN TN OFFICE/OUTPATIENT NEW MODERATE MDM 45 MINUTES Brian Sim MD [address] [place] [address] Phone: tel: fax: Referral ID Status Reason Start Date Expiration Date V isits Requested Visits Authorized [id number] Pending Review 07/04/2025 07/04/2026 1 1 PATIENT CARE * Eval and Treat (Urgent) - Pending Review Specialty Diagnoses / Procedures Referred By Contac t Referred To Contact Thoracic Surgery / Cardiothoracic Surgery Diagnoses Mass of upper lobe of right lung Procedures TN OFFICE/OUTPATIENT ESTABLISHED MOD MDM 30 MIN TN OFFICE/OUTPATIENT NEW MODERATE MDM 45 MINUTES Romie Long MD [address] [address] Phone: tel: fax: Ben Gu MD [address] [place] [address] Phone: tel: fax:[phone] Referral ID Status Reason Start Date Expiration Date V isits Requested Visits Authorized [id number] Pending Review 07/04/2025 07/04/2026 1 1 PATIENT CARE * Eval and Treat (Urgent) - Open Specialty Diagnoses / Procedures Referred By Contac t Referred To Contact Surgery Diagnoses Mass of upper lobe of right lung Procedures TN OFFICE/OUTPATIENT ESTABLISHED MOD MDM 30 MIN TN OFFICE/OUTPATIENT NEW MODERATE MDM 45 MINUTES Romie Long MD [address] [facility] [employer] [address] [place] [phone] Phone: tel: fax: Rodrigo Saenz, [address] [facility] [address] [facility] [address] [place] [address] Phone: tel: fax: Referral ID Status Reason Start Date Expiration Date V isits Requested Visits Authorized [id number] Open CRS To Schedule (STL) 07/04/2025 07/04/2026 1 1 PATIENT CARE * Eval and Treat (Routine) - Open Specialty Diagnoses / Procedures Referred By Contac t Referred To Contact Oncology Diagnoses Mass of upper lobe of right lung Procedures TN OFFICE/OUTPATIENT ESTABLISHED MOD MDM 30 MIN TN OFFICE/OUTPATIENT NEW MODERATE MDM 45 MINUTES Romie Long MD [address] [facility] [address] [place] [phone] Phone: tel: fax: Referral ID Status Reason Start Date Expiration Date Visits Re quested Visits Authorized [id number] Open 07/04/2025 07/05/2026 1 1 PATIENT CARE Encounter Details Date Type Department Care Team (Late st Contact Info) Description 07/04/2025 10:30 AM RN PATIENT CARE Office Visit [facility] Oncology and Hematology - [place] [address] [facility] [address] [place] [address] Romie Long MD [address] [facility] [employer] [address] [place] [address] Mass of upper lobe of right lung (Primary Dx) Social History Tobacco Use Types Packs/Day Years [...] on file Sexual Orientation Not on file documented as of this encounter Last Filed Vital Signs Vital Sign Reading Time Taken Comments Blood Pressure 137/89 07/04/2025 10:32 AM RN PATIENT CARE Pulse 79 07/04/2025 10:32 AM RN PATIENT CARE Temperature 36.4 C (97.5 F) 07/04/2025 10:32 AM RN PATIENT CARE Respiratory Rate 16 07/04/2025 10:32 AM RN PATIENT CARE Oxygen Saturation 93% 07/04/2025 10:32 AM RN PATIENT CARE Inhaled Oxygen Concentration - - Weight 67 kg (147 lb 12.8 oz) 07/04/2025 10:32 A M RN PATIENT CARE Height - - Body Mass Index 26.18 06/21/2025 7:50 AM RN PATIENT CARE documented in this encounter Plan of Treatment Upcoming Encounters Date Type Department Care Team (Late st Contact Info) Description 07/26/2025 1:00 PM RN PATIENT CARE Office Visit [facility] Oncology and Hematology - [place] [address] [place] [address] Romie Long MD [address] [facility] [employer] [address] [place] [address] Pending Results Name Type Priority Associated Diagnoses Date /Time TEMPUS XT DNA AND RNA Lab Routine Mass of upper lobe of right lung 07/04/2025 11:42 AM RN PATIENT CARE TEMPUS XT NORMAL BLOOD Lab Routine Mass of upper lobe of right lung 07/04/2025 11:42 AM RN PATIENT CARE Scheduled Orders Name Type Priority Associated Diagnoses Orde r Schedule MISCELLANEOUS LAB TEST Lab Routine Mass of upper lobe of right lung Expected: 07/04/2025, Expires: 07/04/2026 TEMPUS XT DNA AND RNA Lab Routine Mass of upper lobe of right lung Expected: 07/04/2025, Expires: 07/04/2026 TEMPUS XF Lab Routine Mass of upper lobe of right lung Expected: 07/04/2025, Expires: 07/04/2026 TEMPUS XT DNA AND RNA SOLID TUMOR Lab Routine Mass of upper lobe of right lung Ordered: 07/04/2025 Scheduled Referrals Name Type Priority Associated Diagnoses Order Schedule AMB REFERRAL TO CHEMO TEACHING Outpatient Referral Routine Mass of upper lobe of right lung Ordered: 07/04/2025 AMB REFERRAL TO COLORECTAL SURGERY Outpatient Referral Routine Mass of upper lobe of right lung Ordered: 07/04/2025 AMB REFERRAL TO CARDIOTHORACIC SURGEON Outpatient Referral Routine Mass of upper lobe of right lung Ordered: 07/04/2025 AMB REFERRAL TO RADIATION ONCOLOGY Outpatient Referral Routine Mass of upper lobe of right lung Ordered: 07/04/2025 documented as of this encounter Visit Diagnoses Diagnosis Mass of upper lobe of right lung- Primary documented in this encounter Care Teams Adventure Guide Relationship Specialty Start Date End Date Mike Holt MD [address] [place] [phone] PCP - General Internal Medicine 07/04/25 documented as of this encounter
--- OUTSIDE RECORDS SUMMARY | 2025-07-04 12:02 | XMS_ITS | Clinical Summary ---
Author Organization [facility] Care Team Providers Care Forestry Workers Name Role Phone Unavailable Primary Care Provider Unavailabl e Social History Tobacco Use Types Packs/Day Years Used Date Smoking Tobacco: Never Assessed Comments Unknown Sex and Gender Information Value Date Recorded Sex Assigned at Not on file Legal Sex Female 11:09 AM HARNESS RACING HANDICAPPER Gender Identity Not on file Sexual Orientation [...]
--- OUTSIDE RECORDS SUMMARY | 2025-07-04 12:02 | XMS_ITS | Clinical Summary ---
Author Organization [facility] (Formerly [facility])[3] Rupertocarolyneshade Ferreira Address [address] [place] [address] Care Team Providers Care Embedded Linux Developer Name Role Phone Mike Holt MD Primary Care Provider Allergies Active Allergy Reactions Criticality Noted Date Comments Levofloxacin Other (See Comments) 05/21/2025 Levaquin Penicillins Hives,Unknown,Swelling High 07/11/2020 Medications baclofen (LIORESAL) 10 mg tablet Take 1 Tablet by mouth 2 times daily. 04/25/2025 Active gabapentin (NEURONTIN) 100 mg capsule Take 200 mg by mouth 3 times daily. Active Active Problems Problem Noted Date Diagnosed Date Lung mass 06/21/2025 Mediastinal adenopathy 06/21/2025 Encounters Date Type Department Care Team Description 07/04/2025 10:30 AM HEALTH SERVICES MANAGER Office Visit [facility] (Formerly [facility])[3] Oncology and Hematology - Jose [address] [facility] [address] [place] [address] Romie Long MD Mass of upper lobe of right lung (Primary Dx) 06/26/2025 External Device Data STL ABSTRACTION Provider, Abstract 06/25/2025 Telephone [facility] (Former[facility])[3] Pulmonology [facility] [address] [facility] [address] [place] [address] Chuck Khalil MD Results 06/21/2025 6:37 AM HEALTH SERVICES MANAGER - 06/21/2025 12:15 PM HEALTH SERVICES MANAGER Hospital Encounter [facility] Interventional [facility] [address] [place] [address] Chuck hKalil MD Lung mass Discharge Disposition: Home or Self Care 06/19/2025 Abstract [facility] ([facility])[3] Pulmonology [address] [place] [address] Chuck Khalil MD 06/12/2025 9:00 AM HEALTH SERVICES MANAGER Office Visit [facility] ([facility])[3] Pulmonology [address] [place] [address] Chuck Khalil MD Mass of upper lobe of right lung (Primary Dx); Emphysema of lung (CMS/HCC); Hilar lymphadenopathy; Personal history of tobacco use 06/12/2025 Telephone [facility] ([facility])[3] Pulmonology [address] [place] [address] Chuck Khalil MD Procedure 06/06/2025 Telephone [facility] ([facility]3] Pulmonology [address] [place] [address] Chuck Khalil MD Needs Appointment 06/05/2025 4:30 PM CDT Telephone Check Up [facility] ([facility]3] Oncology and Hematology [facility] [address] [place] [address] Romie Long MD Mass of upper lobe of right lung (Primary Dx) 05/30/2025 Orders Only [facility] ([facility]3] Oncology and Hematology [place] [address] [place] [address] Romie Long MD 05/29/2025 External Device Data STL ABSTRACTION Provider, Abstract 05/22/2025 External Device Data STL ABSTRACTION Provider, Abstract 05/22/2025 External Device Data STL ABSTRACTION Provider, Abstract 05/22/2025 External Device Data STL ABSTRACTION Provider, Abstract 05/21/2025 10:30 AM CDT Office Visit [facility] ([facility])[3] Oncology and Hematology - Jose [address] [place] [address] Romie Long MD Mass of upper lobe [...] Comments Blood Pressure 137/89 07/04/2025 10:32 AM HEALTH SERVICES MANAGER Pulse 79 07/04/2025 10:32 AM HEALTH SERVICES MANAGER Temperature 36.4 C (97.5 F) 07/04/2025 10:32 AM HEALTH SERVICES MANAGER Respiratory Rate 16 07/04/2025 10:32 AM HEALTH SERVICES MANAGER Oxygen Saturation 93% 07/04/2025 10:32 AM HEALTH SERVICES MANAGER Inhaled Oxygen Concentration - - Weight 67 kg (147 lb 12.8 oz) 07/04/2025 10:32 A M HEALTH SERVICES MANAGER Height 160 cm (5' 3) 06/21/2025 7:50 AM HEALTH SERVICES MANAGER Body Mass Index 26.18 06/21/2025 7:50 AM HEALTH SERVICES MANAGER Plan of Treatment Upcoming Encounters Date Type Department Care Team (Late st Contact Info) Description 07/26/2025 1:00 PM HEALTH SERVICES MANAGER Office Visit [facility] ([facility]3] Oncology and Hematology - Jose [address] [facility] [address] [place] [address] Romie Long MD [address] [facility] [address] [place] [address] Health Maintenance Due Date Last Done Comments Pre-Diabetes and Diabetes Screening 1965 DTAP/TDAP/TD VACCINES (1 - Tdap) 1983 Traditional Medicare (ACO) Annual Wellness Visit 1983 HPV/Cotest (21-29) 1985 CERVICAL CANCER SCREENING [...] of 2) 2014 INFLUENZA VACCINE (#1) 2025 4, 05/03/2023, 06/01/2022, Additional history exists COVID-19 Vaccine ( season) 2025 05/03/2023, 05/14/2022, 06/26/2021, Additional history exists HEPATITIS B VACCINES Aged Out No long er eligible based on patient's age to complete this topic Procedures Procedure Name Priority Date/Time Associated Diagnosis Comments PROCEDURE REPORT 06/21/2025 11:1 0 AM HEALTH SERVICES MANAGER XR CHEST PA OR AP 1 VW Stat 10:10 AM HEALTH SERVICES MANAGER PATHOLOGY Pathology 06/21/2025 9:40 AM HEALTH SERVICES MANAGER CYTOLOGY, NON GYNE Pathology 06/21/2025 9: 40 AM HEALTH SERVICES MANAGER HISTOPLASMA PCR Routine 06/21/2025 9:40 AM HEALTH SERVICES MANAGER ASPERGILLUS ANTIGEN, BRONCHOALVEOLAR LAVAGE Routine 06/21/2025 9:40 AM HEALTH SERVICES MANAGER FUNGUS CULTURE, OTHER Routine 06/21/2025 9:40 AM HEALTH SERVICES MANAGER FUNGUS CULTURE, OTHER Routine 06/21/2025 9:40 AM HEALTH SERVICES MANAGER AFB CULTURE WITH STAIN Routine 5 9:40 AM HEALTH SERVICES MANAGER AFB CULTURE WITH STAIN Routine 9:40 AM HEALTH SERVICES MANAGER RESPIRATORY CULTURE WITH GRAM STAIN Routine 06/21/2025 9:40 AM HEALTH SERVICES MANAGER RESPIRATORY CULTURE WITH GRAM STAIN Routine 06/21/2025 9:40 AM HEALTH SERVICES MANAGER XR FLUORO LESS THAN 1 HOUR Routine 06/21/2025 9:17 AM HEALTH SERVICES MANAGER PET BONE IMG W CT SKL BSE MID THG Routine 05/29/2025 12:39 PM CDT from Last 3 Months Results * PROCEDURE REPORT (06/21/2025 11:10 AM HEALTH SERVICES MANAGER) Narrative Procedure Note Chuck Khalil MD - 06/21/2025 11:09 AM CST [facility] Pulmonology Patient Name: Kassandra Price Procedure Date: 06/21/2025 Date of : 1965 Admit Type: Outpatient Attending MD: Chuck Khalil MD, Procedure: Bronchoscopy Indications: Right upper lobe mass, Mediastinal adenopathy Providers: Chuck Khalil MD (Doctor) Referring MD: Romie Long Requesting Physician: Medicines: Midazolam 8 mg IV, Fentanyl 200 mcg IV Complications: No immediate complications Procedure: Informed consent was obtained for the procedure, including sedation. Risks of hypoxia, dental injury, lung injury/perforation, hemorrhage, infection, arrhythmia, and adverse drug reaction were discussed. A time-out process was performed and verified patient identification, procedure, correct patient position, as well as special equipment available. The patient was brought to the bronchoscopy suite. 2% lidocaine was used for topical anesthesia of the tracheobronchial tree. Oxygen saturation and vital signs were monitored continuously. The scope was introduced through the mouth, via laryngeal mask airway and advanced to the tracheobronchial tree. The procedure was accomplished without difficulty. The patient tolerated the procedure fairly well. Moderate sedation start time 8:45 AM Moderate sedation end time 9:33 AM Findings: The abdirahman itself was sharp with no mucosal abnormalities. First, the entire bronchial tree was comprehensively inspected to the subsegmental level without visualized endobronchial lesions or mucosal abnormalities. A radial ultrasound probe was inserted into the posterior segment of the right upper lobe and radial ultrasound imaging was performed to localize an area of abnormal echogenicity. The probe was withdrawn and a bronchoalveolar lavage, brushings, multiple transbronchial needle aspirates as well as multiple transbronchial forceps biopsies were performed in this area under fluoroscopic guidance. Multiple acquisition modalities were utilized to improve the diagnostic yield. Hemostasis was achieved with topical instillation of an epinephrine solution following which the bronchoscope was withdrawn without incident. An EBUS-bronchoscope was inserted via the indwelling airway and advanced to the right secondary abdirahman; linear ultrasound imaging demonstrated lymphadenopathy corresponding to station 11R. Multiple EBUS-guided needle aspirations were performed. The bronchoscope was sequentially retracted at which time further ultrasound imaging demonstrated lymphadenopathy at stations 7 and 4R, additional needle aspirates were obtained. The EBUS-bronchoscope was withdrawn without incident, no significant residual bleeding was noted. Specimens: 1.Bronchoalveolar lavage from the RUL 2.Cytology brushings from the RUL 3.Transbronchial needle aspirates from the RUL 4.Transbronchial forceps biopsies from the RUL 5.Needle aspirates from lymph node stations 11R, 4R and 7 . Impression: - Right upper lobe mass - Mediastinal adenopathy Recommendation: - Await test results. - Chest X-ray post-procedure. Chuck Khalil MD 06/21/2025 11:04:01 AM Number of Addenda: 0 Note Initiated On: 06/21/2025 7:[address]; [place] [address] Chuck Khalil MD PROCEDURE/MINOR SURGICAL ORDE RABLES Final Result * XR CHEST PA OR AP 1 VW (06/21/2025 10:10 AM HEALTH SERVICES MANAGER) Anatomical Region Laterality Modality Chest Computed Radiogr aphy 06/21/2025 11:0 3 AM HEALTH SERVICES MANAGER Impressions 06/21/2025 11:10 AM HEALTH SERVICES MANAGER IMPRESSION: Grossly unchanged appearance of the right upper lobe mass. No pneumothorax. DICTATION LOCATION: Location 1 [facility] 06/21/2025 11:10 AM HEALTH SERVICES MANAGER EXAM: XR CHEST PA OR AP 1 VW DATE: 06/21/2025 10:10 AM HISTORY: Post-Operative. FINDINGS: Comparison is made to CT 03/16/2025 and PET/CT 05/29/2025. Accounting for differences in modality, grossly unchanged appearance of the right upper lobe mass. No new area of consolidation. No pleural effusion or pneumothorax. Heart size is normal. Procedure Note Hema Medina MD - 06/21/2025 EXAM: XR CHEST PA OR AP 1 VW DATE: 06/21/2025 10:10 AM HISTORY: Post-Operative. FINDINGS: Comparison is made to CT 03/16/2025 and PET/CT 05/29/2025. Accounting for differences in modality, grossly unchanged appearance of the right upper lobe mass. No new area of consolidation. No pleural effusion or pneumothorax. Heart size is normal. IMPRESSION: Grossly unchanged appearance of the right upper lobe mass. No pneumothorax. DICTATION LOCATION: Location [address] [place] [address] Chuck Khalil MD DIAGNOSTIC IMAGING ORDERABLES Final Result * HISTOPLASMA PCR (06/21/2025 9:40 AM HEALTH SERVICES MANAGER) SOURCE BAL 06/24/2025 2:36 AM HEALTH SERVICES MANAGER [facility] HISTOPLASMA CAPSULATUM DNA NOT DETECTED 06/24/2025 2:36 AM HEALTH SERVICES MANAGER [facility] Comment: REFERENCE RANGE: NOT DETECTED This test was developed and its analytical performance characteristics have been determined by [employer]. It has not been cleared or approved by FDA. This assay has been validated pursuant to the CLIA regulations and is used for clinical purposes. BAL (Lung, RUL) Collection / Unknown 06/21/2025 9:40 AM HEALTH SERVICES MANAGER 06/21/2025 11:07 AM HEALTH SERVICES MANAGER Narrative [facility] - 06/24/2025 2:36 AM HEALTH SERVICES MANAGER Performing Organization Information: Site ID: [id number] Name: [employer], Address: [address] [place] [id number] Director: Gregoria Layton MD,PhD,MANOJ Chuck Khalil MD BODY FLUIDS AND STOOLS Final Result Performing Organization Address [facility] de Phone Number [facility] [phone] * ASPERGILLUS ANTIGEN, BRONCHOALVEOLAR LAVAGE (06/21/2025 9:40 AM HEALTH SERVICES MANAGER) ASPERGILLUS GALACTOMANAN INDEX <0.50 06/24/2025 5:16 PM HEALTH SERVICES MANAGER [facility] ASPERGILLUS GALACTOMANNAN AG NOT DETECTED 06/24/2025 5:16 PM HEALTH SERVICES MANAGER [facility] Comment: REFERENCE RANGE: <0.50 NOT DETECTED RESULT INTERPRETATION: An Index <0.50 is considered to be negative. An Index >=0.50 is considered to be positive. A positive result for patients being treated with piperacillin-tazobactam and other beta-lactam antibiotics such as amoxicillin-clavulanate may be false positive due to cross reactivity and should be viewed in conjunction with all clinical findings. Positive results with this assay has also been reported in patients infected with Penicillium marneffei and Cryptococcus. BAL (Lung, RUL) Collection / Unknown 06/21/2025 9:40 AM HEALTH SERVICES MANAGER 06/21/2025 11:07 AM HEALTH SERVICES MANAGER Narrative [facility] - 06/24/2025 5:16 PM HEALTH SERVICES MANAGER Performing Organization Information: Site ID: [id number] Name: [employer]/[facility], Address: [address] [place] [address] Director: Gregoria Layton MD,PhD,MANOJ Chuck Khalil MD MICROBIOLOGY - GENERAL ORDERA BLES Final Result Performing Organization Address [facility] Co de Phone Number [facility] [phone] * PATHOLOGY (06/21/2025 9:40 AM HEALTH SERVICES MANAGER) CASE REPORT Surgical Pathology Report Case: [id number] Authorizing Provider: Chuck Khalil MD Collected: 06/21/2025 09:40 AM Ordering Location: [facility] Received: 06/21/2025 11:[address] [facility] Interventional Care Pathologist: Thu Corral MD Specimen: Lung, RUL, Transbronchial bx 5 5:26 PM [facility] FINAL DIAGNOSIS Lung, right upper lobe, transbronchial biopsy: - Non-small cell carcinoma, favor adenocarcinoma of lung origin - See corresponding cytology [id number] 5 5:26 PM [facility] at 1726 HEALTH SERVICES MANAGER DIAGNOSIS COMMENT Molecular studies (e.g. ALK, ROS1 and eGFR) will be performed upon request. 5 5:26 PM [facility] GROSS DESCRIPTION Received in one container labeled Kassandra Price and transbronchial biopsy RUL are 6 irregular fragments of pink-abarca to red tissue ranging from 0.1 x 0.3 cm in greatest dimension. Entirely submitted in cassettes labeled A1 and A2. SMB 5:26 PM [facility] MICROSCOPIC DESCRIPTION The slides are labeled [id number] and Kassandra Price. Sections from the right upper lobe transbronchial biopsy, block A2, show abundant benign cartilage and crushed mucosa and submucosa with chronic inflammation and numerous fragments of blood clot. Block A1 has similar findings, but with 1 fragment of bronchial wall containing a small focus of malignant appearing cells which appear loosely cohesive with large eccentric nuclei, scant to moderate cytoplasm, and prominent nucleoli. Stains are performed on block A1 including mucin, synaptophysin, pancytokeratin, p40, Napsin A, TTF-1 and CK5/6. Mucin stain is negative. Pancytokeratin is positive in the tumor cells. P40 and CK5/6 are negative in the tumor cells but highlights the basal layer of the respiratory epithelium. TTF-1 and Napsin A are positive in occasional malignant cells. The findings are of a non-small cell carcinoma, favoring adenocarcinoma of the lung. 5 5:26 PM [facility] CLINICAL INFORMATION Lung mass, adenopathy No Dx found. 5 5:26 PM [facility] COMMENT Special stain, immunohistochemical, and/or in situ hybridization results are interpreted with controls that demonstrate appropriate staining reactions. Note on use of immunohistochemistry reagents and in situ hybridization probes: These tests were developed and their performance characteristics determined by [facility], Department of Laboratory Medicine. It has not been cleared or approved by the U.S. Food and Drug Administration. The FDA has determined that such clearance or approval is not necessary. The test is used for clinical purposes. It should not be regarded as investigational or for research. This laboratory is certified to perform high complexity testing. Frozen section/operating room consultation, gross examination and dissection, and case sign out may have been performed in part or completely in the following laboratories: [facility], [place] #[id number] [address] [place] [address] [facility], CLIA #[id number] [address] [place] [address] [facility], CLIA #[id number] [address] [place] [address] This report was created with the Mod[employer] voice-activated dictation system. Inherent to this system is the possibility of syntax, grammar, punctuation and other errors that could impact the interpretation of the report. If there are interpretative questions about aspects of this report, please contact the performing pathologist. 5:26 PM HEALTH SERVICES MANAGER [facility] Tissue (Lung, RUL) Collection / Unknown 06/21/2025 9:40 AM HEALTH SERVICES MANAGER 06/21/2025 11:07 AM HEALTH SERVICES MANAGER Chuck Khalil MD PATHOLOGY/CYTOLOGY ORDERABLES Final Result Performing Organization Address City/State/[facility] Co de Phone Number [facility] [id number] [address] [place] [id number] * RESPIRATORY CULTURE WITH GRAM STAIN (06/21/2025 9:40 AM HEALTH SERVICES MANAGER) Only the most recent of2 resultswithin the time period is included. CULTURE No pathogens isolated. Normal respiratory samuel present. 06/23/2025 7:42 AM HEALTH SERVICES MANAGER [facility] GRAM STAIN Non diagnostic pattern 06/23/2025 7:42 AM HEALTH SERVICES MANAGER [facility] GRAM STAIN 1+ (Rare or Occasional) Polymorphonuclear WBC 06/23/2025 7:42 AM HEALTH SERVICES MANAGER [facility] Washings SPECIMEN FROM LUNG / Unknown Collection / Unknown 06/21/2025 9:40 AM HEALTH SERVICES MANAGER 06/21/2025 11:07 AM HEALTH SERVICES MANAGER Chuck Khalil MD MICROBIOLOGY - GENERAL ORDERA BLES Final Result [facility] CLIA# [id number] [address] [facility] [place] [address] * CYTOLOGY, NON GYNE (06/21/2025 9:40 AM HEALTH SERVICES MANAGER) CASE REPORT Medical Cytology Report Case: [id number] Authorizing Provider: Chuck Khalil MD Collected: 06/21/2025 09:40 AM Ordering Location: [facility] Received: 06/21/2025 11:[address] [facility] Interventional Care Pathologist: Thu Corral MD Specimens: A) - Fine needle aspirate, lung, RUL B) - Fine needle aspirate, lymph node, Station 11R C) - Fine needle aspirate, lymph node, Station 4R D) - Fine needle aspirate, lymph node, Station 7 E) - Bronchial brushing, RUL 5 5:23 PM [facility] ADDENDUM 1 Molecular studies (e.g. ALK, ROS1, and eGFR) will be performed upon request. 5 5:23 PM [facility] Addendum electronically signed by Thu Corral MD on 06/22/2025 at 1723 HEALTH SERVICES MANAGER FINAL DIAGNOSIS Lung, right upper lobe, EBUS FNA, smears, ThinPrep and cellblock: - Positive for malignancy; non-small cell carcinoma, favor adenocarcinoma of lung origin, rare cells - See corresponding biopsy [id number] Lymph node, station 11R, EBUS FNA, smears, ThinPrep and cell block: - Positive for malignancy; non-small cell carcinoma, favor metastatic adenocarcinoma of lung origin - Lymphoid component present Lymph node, station 4R, EBUS FNA, ThinPrep and cell block: - Lymphoid component present - Negative for metastatic carcinoma Lymph node, station 7, EBUS FNA, ThinPrep and cellblock: - Lymphoid component present - Negative for metastatic carcinoma Lung, right upper lobe, bronchial brushing, ThinPrep: - Positive for malignancy; non-small cell carcinoma, favor adenocarcinoma of lung origin 5 5:23 PM [facility] at 1722 HEALTH SERVICES MANAGER GROSS DESCRIPTION Received are 5 containers all labeled Kassandra Price. The first specimen (A) is additionally labeled lung FNA RUL. It consists of 4 direct smears (2 Pap, 2 Diff-Quik stained) and a container of CytoLyt that is made into a ThinPrep and cell block. The second specimen (B) is additionally labeled lymph node FNA station 11R. It consists of 4 direct smears (2 Pap, 2 Diff-Quik stained) and a container of CytoLyt that is made into a ThinPrep and cell block. The third container (C) is additionally labeled lymph node FNA station 4R. It holds 30 mL of slightly cloudy red CytoLyt fluid. One ThinPrep and one cell block made. The fourth container (D) is additionally labeled lymph node FNA station 7. It holds 30 mL of slightly cloudy red CytoLyt fluid. One ThinPrep and one cell block made. The fifth container (E) is additionally labeled bronchial brushing RUL. It holds 1 brush(s) in 30 mL of CytoLyt fluid. One ThinPrep made. 5 5:23 PM HEALTH SERVICES MANAGER [facility] MICROSCOPIC DESCRIPTION The slides are labeled [id number] and Kassandra Price. The immediate assessments are confirmed. The smears, ThinPrep and cell block from the right upper lobe fine-needle aspiration show blood and macrophages. There are benign ciliated bronchial cells. Rare enlarged cells are seen with prominent nucleoli in cohesive clusters. The atypical cells are rare and are best seen on the Diff-Quik smear. The Pap stained smear only has very rare atypical cells for evaluation the ThinPrep has benign ciliated bronchial cells as well as atypical cells which are single and small clusters with enlarged nuclei with prominent nucleoli and scant to moderate cytoplasm. No keratinization or cytoplasmic vacuoles are identified. The smears, ThinPrep and cell block from the station 11R lymph node fine-needle aspiration show numerous malignant cells as seen in the lung fine-needle aspiration. Malignant cells have enlarged nuclei which are both cohesive and discohesive with prominent nucleoli and scant to moderate cytoplasm. No keratinization or gland formation are seen. There is a background of lymphocytes consistent with lymph node sampling. The cellblock also contains the malignant cells as well as lymphocytes. Immunostains are performed on block B2 including TTF-1, Napsin A, pancytokeratin, synaptophysin, CK5/6 and p40. Mucin is also performed and is negative. Synaptophysin is negative. Pancytokeratin is positive in malignant cells as is the TTF-1 in a subset of cells. P40 and CK5/6 are negative in the malignant cells. Napsin A is equivocal. The ThinPrep and cell block from the station 4Rlymph node fine-needle aspiration show numerous small lymphocytes and anthracotic macrophages. Malignant cells are not identified. There are benign ciliated bronchial cells. The ThinPrep and cell block from the station station 7 lymph node fine-needle aspiration show a lymphoid component with numerous small lymphocytes and anthracotic macrophages. No granulomas or malignant cells are identified. The ThinPrep from the right upper lobe bronchial brushing shows a low cellularity sample with a few benign ciliated bronchial cells and clusters of malignant cells with prominent nucleoli and scant to moderate cytoplasm as seen in the right upper lobe FNA in the 11R lymph node fine-needle aspiration. 5 5:23 PM HEALTH SERVICES MANAGER [facility] IMMEDIATE ASSESSMENT Lung, right upper lobe, fine-needle aspiration: - Pass #1 unsatisfactory - Pass #2 satisfactory Lymph node, 11R, fine-needle aspiration: - Pass #3 satisfactory - Pass #[address] 5 5:23 PM HEALTH SERVICES MANAGER [facility] CLINICAL INFORMATION Lung mass, adenopathy No Dx found. 5 5:23 PM HEALTH SERVICES MANAGER [facility] COMMENT Special stain, immunohistochemical, and/or in situ hybridization results are interpreted with controls that demonstrate appropriate staining reactions. Note on use of immunohistochemistry reagents and in situ hybridization probes: These tests were developed and their performance characteristics determined by [facility], Department of Laboratory Medicine. It has not been cleared or approved by the U.S. Food and Drug Administration. The FDA has determined that such clearance or approval is not necessary. The test is used for clinical purposes. It should not be regarded as investigational or for research. This laboratory is certified to perform high complexity testing. Cases may have been signed out in part or completely in the following laboratories: [facility], CLIA #[id number] [address] [place] [address] [facility], CLIA #[id number] [address] [place] [address]. 5:23 PM HEALTH SERVICES MANAGER [facility] Body fluid (Fine needle aspirate, lung) Collection / Unknown 06/21/2025 9:40 AM HEALTH SERVICES MANAGER 06/21/2025 11:13 AM HEALTH SERVICES MANAGER Body fluid specimen (specimen) SPECIMEN FROM LYMPH NODE OBTAINED BY FINE NEEDLE ASPIRATION BIOPSY / Unknown 06/21/2025 9:40 AM HEALTH SERVICES MANAGER 06/21/2025 11:13 AM HEALTH SERVICES MANAGER Body fluid specimen (specimen) SPECIMEN FROM LYMPH NODE OBTAINED BY FINE NEEDLE ASPIRATION BIOPSY / Unknown 06/21/2025 9:40 AM HEALTH SERVICES MANAGER 06/21/2025 11:13 AM HEALTH SERVICES MANAGER Body fluid specimen (specimen) SPECIMEN FROM LYMPH NODE OBTAINED BY FINE NEEDLE ASPIRATION BIOPSY / Unknown 06/21/2025 9:40 AM HEALTH SERVICES MANAGER 06/21/2025 11:13 AM HEALTH SERVICES MANAGER Body fluid specimen (specimen) (Bronchial brushing) 06/21/2025 9:40 AM HEALTH SERVICES MANAGER 06/21/2025 11:13 AM HEALTH SERVICES MANAGER Chuck Khalil MD PATHOLOGY/CYTOLOGY ORDERABLES Edited Result - Final [facility] CLIA# [id number] [address] [place] [address] [place] [address] * XR FLUORO LESS THAN 1 HOUR (06/21/2025 9:17 AM HEALTH SERVICES MANAGER) Anatomical Region Laterality Modality Computed Radiogr aphy 06/21/2025 9:18 AM HEALTH SERVICES MANAGER Impressions 06/21/2025 2:03 PM HEALTH SERVICES MANAGER FINDINGS/IMPRESSION: A single intraoperative fluoroscopic C-arm spot radiographs of a portion of the chest demonstrates a bronchoscope. Please see the operative report for details. Fluoroscopy Time: 4 minutes Entrance Dose: 33.14 (mGy) DICTATION LOCATION: Location [address] [place] [address] Narrative 06/21/2025 2:03 PM HEALTH SERVICES MANAGER EXAM: XR FLUORO LESS THAN 1 HOUR HISTORY: Bronchoscopy DATE: 06/21/2025 9:17 AM COMPARISON: None Procedure Note Elyssa Carbajal MD - 06/21/2025 EXAM: XR FLUORO LESS THAN 1 HOUR HISTORY: Bronchoscopy DATE: 06/21/2025 9:17 AM COMPARISON: None FINDINGS/IMPRESSION: A single intraoperative fluoroscopic C-arm spot radiographs of a portion of the chest demonstrates a bronchoscope. Please see the operative report for details. Fluoroscopy Time: 4 minutes Entrance Dose: 33.14 (mGy) DICTATION LOCATION: Location - [facility] Chuck Khalil MD DIAGNOSTIC IMAGING ORDERABLES Final Result * PET BONE IMG W CT SKB MD (05/29/2025 12:39 PM CDT) Anatomical Region Laterality Modality Positron Emissio n Tomography (PET) Romie Long MD PE ORDERABLES Final Result from Last 3 Months Insurance MEDICARE PART A AND B MEDICAID [place] MEDICARE PART A AND B [place]ID [place] Care Teams Embedded Linux Developer Relationship Specialty Start Date End Date Mike Holt MD [address] [place] [id number] PCP - General Internal Medicine 07/04/25
--- OUTSIDE RECORDS SUMMARY | 2025-07-04 12:02 | XMS_ITS | Clinical Summary ---
Author Organization [facility] Physician Of [facility] [address] [place] [id number] Care Team Providers Care Rod Straightener Name Role Phone Gege Robertson MD Primary Care Provider [phone] Allergies Active Allergy Reactions Criticality Noted Date [...] EKG. She was subsequently evaluated by a concrete paving machine operator who ordered a chest x-ray which showed [...] 07/11/2020 Assessment & Plan (07/11/2020 3:01 PM SALMON GILLNET VESSEL OPERATOR): S/p chest tube insertion. To Suction. Pulmonary has been consulted for which we appreciate their evaluation and recommendations. Oxygen as needed. Abnormal PET of right lung 07/11/2020 Assessment & Plan (07/11/2020 3:00 PM SALMON GILLNET VESSEL OPERATOR): Records to be obtained from Dr. Kennedy, Dr. Cobos and Dr. Mares's office. History of tobacco abuse. recommended for right upper lung and partial middle lobe thoracotomy per pt. Tobacco abuse 07/11/2020 Assessment & Plan (07/11/2020 3:00 PM SALMON GILLNET VESSEL OPERATOR): Nicotine patch ordered. Cessation encouraged. Bulging lumbar disc 07/11/2020 Assessment & Plan (07/11/2020 3:01 PM SALMON GILLNET VESSEL OPERATOR): Was scheduled for back surgery, now on hold for concerns of lung cancer. Prn analgesics and muscle relaxants. Gabapentin. COPD (chronic obstructive pulmonary disease) 10/2019 Assessment & Plan (07/11/2020 3:01 PM SALMON GILLNET VESSEL OPERATOR): Not in exacerbation. Prn duo-nebs. History of atrial fibrillation 07/11/2020 Assessment & Plan (07/11/2020 3:03 PM SALMON GILLNET VESSEL OPERATOR): Per anesthesia note, no prior records available for review in care everywhere or [facility]. Check ekg. Surgical History Surgery Date Site/Laterality [...] on file Legal Sex Female 9:03 PM SALMON GILLNET VESSEL OPERATOR Gender Identity Not on file Sexual Orientation Not on file Last Filed Vital Signs Vital Sign Reading Time Taken Comments Blood Pressure 111/72 07/17/2020 8:39 AM SALMON GILLNET VESSEL OPERATOR Pulse 80 07/17/2020 8:39 AM SALMON GILLNET VESSEL OPERATOR Temperature 36.6 C (97.9 F) 07/17/2020 8:39 AM SALMON GILLNET VESSEL OPERATOR Respiratory Rate 16 07/17/2020 8:39 AM SALMON GILLNET VESSEL OPERATOR Oxygen Saturation 94% 07/17/2020 8:39 AM SALMON GILLNET VESSEL OPERATOR Inhaled Oxygen Concentration - - Weight 60.8 kg (134 lb) 07/11/2020 2:10 PM SALMON GILLNET VESSEL OPERATOR Height 157.5 cm (5' 2) 07/11/2020 2:10 PM SALMON GILLNET VESSEL OPERATOR Body Mass Index 24.51 07/11/2020 2:10 PM SALMON GILLNET VESSEL OPERATOR Plan of Treatment Health Maintenance Due Date Last Done Comments Breast Cancer Screening-Mammogram 1964 Colon Cancer Screening-Colonoscopy 1964 Depression Screening 1964 Hepatitis C Screening 1964 DTaP/Tdap/Td Vaccine (1 - Tdap) 1975 Hepatitis B Screening 1982 Regular Well Visit/Exam 18-64 1982 Zoster Vaccine (1 of 2) 2014 Covid-19 Vaccine (4 - season) 2025 06/26/2021, 11/08/2020, 10/18/2020 Influenza Vaccine (#1) 2025 , 05/03/2023, 06/01/2022, Additional history exists Pneumococcal vaccine <65 Aged Out No longer eligible based on patient's age to complete this topic Advance Directives For more information, please contact: [phone] * Full Code (Latest Code Status on File) Date Activated Date Inactivated Comments 07/11/2020 9:45 AM 07/11/2020 2:11 PM Care Teams Rod Straightener Relationship Specialty [place] [id number] [address] PCP - General 05/02/20
== END 2025-07-04 11:24 | disposition home or self-care (01) ==
LOC: ANHLAB 11:24
PROVIDERS: PCP Internal Medicine; Visit Provider Internal Medicine Hematology & Oncology
DX: R91.8 Other nonspecific abnormal finding of lung field (principal)
CPT/HCPCS: 36415

== ENCOUNTER 2025-07-13 09:55 | Outpatient (CLI) | payer MEDICARE, MEDICAID, SELFPAY ==
[2025-07-13 10:33] LABS: Hematocrit 37.7 % (37.0-47.0); Hemoglobin 12.3 g/dL (12.0-15.0); Immature Granulocyte Percent A 0.4 % (0-0.5); Lymphocytes Absolute Auto 1.35 K/mm3 (0.9-3.2); Mean Corpuscular HGB Conc 32.6 g/dl (32-36); Mean Corpuscular Hemoglobin 29.1 pg (26-34); Mean Corpuscular Volume 89.3 fl (80-100); Nucleated Red Blood Cells Absolute Auto 0.000 K/mm3 (0.0-0.012); Nucleated Red Blood Cells Perc 0.0 % (0.0-0.2); Platelet Count Result 305 k/mm3 (150-375); Red Blood Count 4.22 M/mm3 (4.2-5.4); White Blood Count 7.6 K/mm3 (4.5-10.0)
[2025-07-13 10:49] LABS: INR 1.1; Prothrombin Time 14.3 Seconds (11.1-14.7)
[2025-07-13 10:50] LABS: Partial Thromboplastin Time 32.1 Seconds (22.3-36.8)
== END 2025-07-13 09:56 | disposition home or self-care (01) ==
LOC: ANHSURGERY 10:04
PROVIDERS: PCP Internal Medicine; Visit Provider Surgery
DX: C34.90 Malignant neoplasm of unspecified part of unspecified bronchus or lung (principal); Z01.818 Encounter for other preprocedural examination
CPT/HCPCS: 36415; 85025; 85610; 85730

== ENCOUNTER 2025-07-16 00:44 | Day surgery (SDC) | payer MEDICARE, MEDICAID, SELFPAY ==
--- OUTSIDE RECORDS SUMMARY | 2023-05-25 03:00 | XMS_ITS | Continuity of Care Document ---
Author Organization [facility] Address [address] [place] [address] [place] [phone] Phone Care Team Providers Care System Software Developer Name Role Phone Eros Singleton Unavailable Unavailable Procedures Procedure Date Progress Note Therapeutic Activities Neuromuscular Re-Ed Hot or Cold Pack Therapeutic Activities Neuromuscular Re-Ed Therapeutic Exercise Hot or Cold Pack Therapeutic Activities Neuromuscular Re-Ed Therapeutic Exercise Therapeutic Activities Neuromuscular Re-Ed Therapeutic Exercise Manual Therapy Hot or Cold Pack Therapeutic Activities Neuromuscular Re-Ed Therapeutic Exercise Hot or Cold Pack PT Evaluation Moderate Complexity Neuromuscular Re-Ed Therapeutic Exercise Manual Therapy Therapeutic Activities Neuromuscular Re-Ed Manual Therapy Hot or Cold Pack Therapeutic Activities Therapeutic Exercise Neuromuscular Re-Ed Hot or Cold Pack Manual Therapy Therapeutic Activities Hot or Cold Pack Therapeutic Exercise Neuromuscular Re-Ed Manual Therapy Therapeutic Activities Therapeutic Exercise Neuromuscular Re-Ed Manual Therapy Hot or Cold Pack Neuromuscular Re-Ed Therapeutic Activities Manual Therapy Hot or Cold Pack Therapeutic Exercise PT Evaluation Moderate Complexity Neuromuscular Re-Ed Manual Therapy Therapeutic Exercise Therapeutic Activities Neuromuscular Re-Ed Manual Therapy Hot or Cold Pack Electrical Stimulation Therapeutic Activities Neuromuscular Re-Ed Manual Therapy Hot or Cold Pack Therapeutic Activities Neuromuscular Re-Ed Therapeutic Exercise Manual Therapy Hot or Cold Pack Therapeutic Activities Neuromuscular Re-Ed Therapeutic Exercise Manual Therapy Hot or Cold Pack Therapeutic Activities Neuromuscular Re-Ed Therapeutic Exercise Manual Therapy Hot or Cold Pack Therapeutic Activities Neuromuscular Re-Ed Therapeutic Exercise Manual Therapy Hot or Cold Pack Therapeutic Activities Neuromuscular Re-Ed Manual Therapy Hot or Cold Pack Therapeutic Activities Neuromuscular Re-Ed Therapeutic Exercise Hot or Cold Pack Neuromuscular Re-Ed Manual Therapy Therapeutic Exercise Hot or Cold Pack Therapeutic Activities Neuromuscular Re-Ed Therapeutic Exercise Manual Therapy Hot or Cold Pack Therapeutic Activities Neuromuscular Re-Ed Therapeutic Exercise Manual Therapy Hot or Cold Pack PT Evaluation Moderate Complexity Therapeutic Exercise Neuromuscular Re-Ed Manual Therapy Hot or Cold Pack Free Assessment Advance Directives Directive Yes / No Effective Date File Name No Information Encounters Encounter Description Practice Location Reason(s) For Visit Diagnoses Date Provider Providers Copied on Encounter [address], [id number], tel:[phone] Trout No Information 3 Muehl Eros. [address] [place] [address], [facility], [place], [place], [facility], . tel:[phone] [address], [place], [id number], tel:[phone] Trout No Information 3 Muehl Eros. [address] [place] [address], [facility] [address], [place], [facility], . tel:[phone] Referring Provider: Jesu Garcia, [address] [place], [address]. tel:[phone] [address] [place] [address], [id number], tel:[phone] Trout No Information 3 Muehl Eros. [address] [place] [address], [facility] [address], [place], [place], [facility], . tel:[phone] Referring Provider: Jesu Garcia, [address] [place], [address]. tel:[phone], [id number], tel:[phone] Trout No Information Apr-2 3 Muehl Eros. [address] [place] [address], [facility], [place], [place], [facility], . tel:[phone] Referring Provider: Jesu Garcia, [address], [place], [address]. tel:[phone], [place], [place], [id number], [place] tel:[phone] Trout No Information 3 Muehl Eros. [address] [place] [address], [address], [place], [facility], . tel: [phone] Referring Provider: Jesu Garcia, [address], [place], [address]. tel:[phone], [place], [place], [id number], [place] tel:[phone] Trout No Information 3 Muehl Eros. [address] [place] [address], [address], [place], [facility], . tel: [phone] Referring Provider: Jesu Garcia, [address], [place], [address]. tel:[phone] [address], [place], [id number], [place] tel:[phone] Trout No Information 3 Muehl Eros. [address] [place] [address], [address], [place], [facility], [place]. tel: [phone] Referring Provider: Jesu Garcia, [address], [place], [address]. tel:[phone] [address], [place], [place], [id number], [place] tel:[phone] Trout No Information 0 0 Muehl Eros. [address] [place] [address], [address], [place], [facility], [place]. tel: [phone] Referring Provider: [facility] [employer]. [facility] [address], [place], [place], [id number], [place] tel:[phone] Trout No Information Nov-0 2-202 0 Muehl Eros. [address] [place] [address], [address], [place], [facility], [place]. tel: [phone] Referring Provider: [employer]. [address], [place], [place], [id number], tel:[phone] Trout No Information Oct-3 0-202 0 Muehl Eros. [address] [place] [address], [address], [place], [facility], [place]. tel: [phone] Referring Provider: [employer]. [address], [place], [place], [id number], [place] tel:[phone] Trout No Information Oct-2 6-202 0 Muehl Eros. [address] [place] [address], [address], [place], [facility], [place]. tel: [phone] Referring Provider: [facility] [employer]. [address] [address], [place], [place], [id number], tel:[phone] Trout No Information Oct-2 3-202 0 Muehl Eros. [address] [place] [address], [address], [place], [facility], [place]. tel: [phone] Referring Provider: [employer]. [address], [place], [place], [id number], tel:[phone] Trout No Information Oct-2 0-202 0 Muehl Eros. [address] [place] [address], [address], [place], [facility], [place]. tel: [phone] Referring Provider: [employer]. [address], [place], [place], [id number], [place] tel:[phone] Trout No Information Yoan-0 9-202 0 Muehl Eros. [address] [place] [address], [address], [place], [facility], [place]. tel: [phone] Referring Provider: Raymond Kaur, [address] [place] [address] [facility], [place], [address]. tel:[phone] [address], [place], [place], [id number], tel:[phone] Trout No Information 0 Muehl Eros. [address] [place] [address], [address], [place], [facility], . tel: [phone] Referring Provider: Aleks[address], [place], [address]. tel:[phone] [address], [place], [place], [id number], tel:[phone] Trout No Information 0 Muehl Eros. [address] [place] [address], [address], [place], [facility], . tel: [phone] Referring Provider: Aleksandar N[address], [place], [address]. tel:[phone] [address], [place], [id number], tel:[phone] Trout No Information 9 Muehl Eros. [address] [place] [address], [address], [facility], . tel: [phone] Referring Provider: Aleksandar N[address], [place], [address]. tel:[phone] [address], [place], [id number], [place] tel:[phone] Trout No Information 2 9 Muehl Eros. [address] [place] [address], [address], [place], [facility], . tel: [phone] Referring Provider: Aleksandar N[address], [place], [address]. tel:[phone] [address] [address], [place], [id number], tel:[phone] Trout No Information Dec-2 3-201 9 Muehl Eros. [address] [place] [address], [address], [place], [facility], . tel: [phone] Referring Provider: Aleksandar N[address], [place], [address]. tel:[phone] [address] [place] [address], [id number], tel:[phone] Trout No Information Dec-2 0-201 9 Muehl Eros. [address] [place] [address], [address], [place], [facility], . tel: [phone] Referring Provider: Aleksandar N[address] , [place], [address]. tel:[phone], [id number], tel:[phone] Trout No Information Dec-1 8-201 9 Muehl Eros. [address] [place] [address], [address], [place], [facility], . tel: [phone] Referring Provider: Aleksandar N[address], [place], [address]. tel:[phone] [address] [place] [address], [id number], tel:[phone] Trout No Information Dec-1 2-201 9 Muehl Eros. [address] [place] [address], [address], [place], [facility], . tel: [phone] Referring Provider: Aleksandar N[address], [place], [address]. tel:[phone] [address], [place], [id number], tel:[phone] Trout No Information Dec-0 9-201 9 Muehl Eros. [address] [facility], [address], [place], [facility], . [phone] Referring Provider: Aleksandar N[address] , [place], [address]. tel:[phone], [id number], tel:[phone] Trout No Information 0 5-201 9 Muehl Eros. [address] [facility], [address], [place], [facility], . tel:[phone] Referring Provider: Aleksandar N[address] , [place], [address]. tel:[phone], [id number], tel:[phone] Trout No Information 201 9 Ramseyl Eros. [address] [place] [address], [address], [facility], . tel:[phone] Referring Provider: Aleksandar N[address] , [place], [address]. tel:[phone], [id number], tel:[phone] Trout No Information 9 Kandis Cooney. [address] [place] [address], [address] [place] [address], [facility], . tel:[phone] Referring Provider: Physician Screen. Family History Family Member Type Diagnosis Age At Onset No Information Payers Payer name Insurance type Covered republican ID Josepha ingrid(s) [facility] CI [id number] Social History Type Description Quantity Date Captured Comments Sex Female Smoking Status No Information Chief Complaint And Reason For Visit No Information Reason For Referral Reason For Referral No Information Plan Of Treatment Date Type Action Status Goal Tobacco Cessation Counseling completed Goal Tobacco Cessation Counseling completed Goal Tobacco cessation counseling completed History Of Present Illness Encounter Date Complaint History Of Prese nt Illness No Information Functional Status Date Functional Assessmen t No Information Instructions Date Instruction Additional Infor mation Prescribed activity/exercise edu cation Related to Overweight Dietary needs education Related to Overweight Assessments Type Assessment Date No Information Patient Care Teams Name Effective Dates (start - stop) Status Members No Information
--- NOTE | 2025-07-12 13:17 | PC.NURSE ---
[facility] has started construction of its new state of the art ER which will open Spring 2026. With this, we anticipate parking may be a challenge for some our surgical patients and families. Parking spaces are limited but are available for all Surgical, obstetrics, and ER patients sharing this lot. If you arrive and find you are having a hard time finding a parking space, please note that we understand the challenges, please drive around the hospital and park near Hospital Entrance 1. When you enter this entrance, you can ask a volunteer to direct or take you back to the surgical waiting area to check in. We appreciate everyone?s understanding of these expected challenges while we build for your future. Report to the Outpatient Waiting Room, entrance under the green pavilion located off [address], at time _10:30 AM on date __07/16/25 . Planned Procedure Time: __12:30 PM .? Time changes happen often and if your time is changed the preop area will call you the afternoon before. - You and your visitor will be asked to self-screen and do not enter if you have any COVID symptoms. Please call surgeon if you need to reschedule. - A mask is optional within the hospital at this time. Patients may have clear liquids (water, carbonated beverages, clear teas, apple juice) until 3 hours prior to surgery ( 9:30 AM) with a maximum of 20 ounces. - No food from midnight until time of surgery and no smoking, or chewing tobacco (or any form of nicotine). No chewing gum, candy or mints. - Take only the following medications with a SIP of water on the morning of surgery: ____GABAPENTIN DO NOT STOP ANY OF YOUR OTHER PRESCRIPTION MEDICATIONS PRIOR TO SURGERY EXCEPT THE FOLLOWING Hold all vitamins and supplements for 3 days per anesthesiologist.LAST DOSE 07/12/25 Medications to discontinue per physician NONE Please no make-up, nail colombian, hairspray, perfume, deodorant, or body powder the day of surgery.? No jewelry (including any body piercings) or valuables the day of surgery, leave them at home.? Please take a shower or bath the night before, or the morning of, surgery with an antibacterial soap.? Wear comfortable, loose fitting clothing.? Children are encouraged to wear pajamas. - Jewelry must be removed prior to entering the operating room.? Rings and piercings that are not removed may be cut off. - The hospital will not accept responsibility for valuables.? - Please leave all valuables, including medications, at home the day of surgery. If you are going home after surgery, a licensed pile driver engineer must drive you home.? - NO public transportation without another adult if you receive anesthesia. - We recommend that an adult stay with you for 24 hours following discharge. - We also recommend that you do not drive, make important decision, drink alcoholic beverages, or take any drugs that were not prescribed by your health care provider for at least 24 hours after your discharge time. Follow any additional instructions given to you from your surgeon. Telephone instructions given to __PATIENT and asked if any additional questions and then verbalized understanding. Patient advised to call surgeon office or pre surgery nurse liaison [phone] if any additional questions.
[2025-07-12 13:29] VITALS: BMI 27.8
--- NOTE | ~2025-07-16 | XR_ITS ---
EXAMINATION: XR chest port-a-cath/central COMPARISON: No comparisons available. HISTORY: POST INSERTION DEMETRIO CATH FINDINGS: Right upper lobe mass measures 5 x 6 cm otherwise the lungs are clear. No pneumothorax. Heart is normal size. Mediastinal and hilar contours are within normal limits. Bony thorax no acute abnormality. Miscellaneous: Right Mediport terminates in the SVC. Impression: Mediport placement. No pneumothorax. Reviewed, dictated and finalized at location P. RATORY HELPER Impression: Mediport placement. No pneumothorax.
--- NOTE | ~2025-07-16 | XR_ITS ---
EXAM/PROCEDURE: XR fl guide central line place HISTORY: INSERTION DEMETRIO CATH COMPARISON: None available. TECHNIQUE: Fluoroscopy no charge FLUOROSCOPY TIME: 24.4 seconds Dose: 3.51 mGy IMPRESSION: Fluoroscopic images provided for Central venous catheter placement. No radiologist present. See procedure/operative note for complete evaluation. Reviewed, dictated and finalized at location A. RAL REMEDY CONSULTANT IMPRESSION: Fluoroscopic images provided for Central venous catheter placement. No radiolog ist present. See procedure/operative note for complete evaluation.
--- OUTSIDE RECORDS SUMMARY | 2025-07-16 00:47 | XMS_ITS | Clinical Summary ---
Author Organization [facility] Momo orozco [facility] Address [address] [place] [address] Care Team Providers Care Student Education Specialist Name Role Phone Mike Holt MD Primary [...] Encounters Date Type Department Care Team Description 07/11/2025 10:45 AM BULK SYSTEM OPERATOR Office Visit [facility] Cardiovas and Thor Surg at [facility] [address] [facility] [address] [place] [address] Ben Francis MD Lung mass (Primary Dx); Mediastinal adenopathy 07/11/2025 8:42 AM BULK SYSTEM OPERATOR - 07/11/2025 11:59 PM BULK SYSTEM OPERATOR Hospital Encounter [facility] Pulmonary Function Medical [place] A [address] [facility] [address] [place] [address] Ben Francis MD Discharge Disposition: Home or Self Care 07/10/2025 12:04 PM BULK SYSTEM OPERATOR - 07/10/2025 11:59 PM BULK SYSTEM OPERATOR Hospital Encounter [facility] Pulmonary Function Testing [place]ia [place] [address] [place] [address] Liz Young MD Fotouhi, Farzin, MD PulGilberto mcdonough Discharge Disposition: Home or Self Care 07/04/2025 10:30 AM BULK SYSTEM OPERATOR Office Visit [facility] Oncology and Hematology - [place] [address] [facility] [address] [place] [address] Romie Long MD Mass of upper lobe of right lung (Primary Dx) 07/04/2025 Orders Only [facility] Cardiovas and Thor Surg at [address] [place] [address] Ben Francis MD Lung mass (Primary Dx); Mediastinal adenopathy 06/26/2025 External Device Data STL ABSTRACTION Provider, Abstract 06/25/2025 Telephone [facility] Pulmonology [address] [place] [address] Chuck Khalil MD Results 06/21/2025 6:37 AM BULK SYSTEM OPERATOR - 06/21/2025 12:15 PM BULK SYSTEM OPERATOR Hospital Encounter [facility] Interventional [address] [address] Chuck Khalil MD Lung mass Discharge Disposition: Home or Self Care 06/19/2025 Abstract [facility] Pulmonology [address] [place] [address] Chuck Khalil MD 06/12/2025 9:00 AM BULK SYSTEM OPERATOR Office Visit [facility] Pulmonology [address] [place] [address] Chuck Khalil MD Mass of upper lobe of right lung (Primary Dx); Emphysema of lung (CMS/HCC); Hilar lymphadenopathy; Personal history of tobacco use 06/12/2025 Telephone [facility] Pulmonology [address] [place] [address] Chuck Khalil MD Procedure 06/06/2025 Telephone [facility] Pulmonology [facility] [address] [place] [address] Chuck Khalil MD Needs Appointment 06/05/2025 4:30 PM CDT Telephone Check Up [facility] Oncology and Hematology - [place] [address] [place] [address] Romie Long MD Mass of upper lobe of right lung (Primary Dx) 05/30/2025 Orders Only [facility] Oncology and Hematology - [place] [address] [place] [address] Romie Long MD 05/29/2025 External Device Data STL ABSTRACTION Provider, Abstract 05/22/2025 External Device Data STL ABSTRACTION Provider, Abstract 05/22/2025 External Device Data STL ABSTRACTION Provider, Abstract 05/22/2025 External Device Data STL ABSTRACTION Provider, Abstract 05/21/2025 10:30 AM CDT Office Visit [facility] Oncology and Hematology - [place] [address] [place] [address] Romie Long MD Mass of upper lobe [...] Comments Blood Pressure 137/89 07/04/2025 10:32 AM BULK SYSTEM OPERATOR Pulse 78 07/11/2025 11:19 AM BULK SYSTEM OPERATOR Temperature 36.4 C (97.5 F) 07/04/2025 10:32 AM BULK SYSTEM OPERATOR Respiratory Rate 16 07/04/2025 10:32 AM BULK SYSTEM OPERATOR Oxygen Saturation 98% 07/11/2025 11:19 AM BULK SYSTEM OPERATOR Inhaled Oxygen Concentration - - Weight 67 kg (147 lb 12.8 oz) 07/04/2025 10:32 A M BULK SYSTEM OPERATOR Height 160 cm (5' 3) 06/21/2025 7:50 AM BULK SYSTEM OPERATOR Body Mass Index 26.18 06/21/2025 7:50 AM BULK SYSTEM OPERATOR Plan of Treatment Upcoming Encounters Date Type Department Care Team (Late st Contact Info) Description 07/26/2025 1:00 PM BULK SYSTEM OPERATOR Office Visit [facility] Oncology and Hematology [facility] [address] [facility] [address] [place] [address] Romie Long MD [address] [facility] [address] [place] [address] Health Maintenance Due Date Last [...] Procedure Name Priority Date/Time Associated Diagnosis Comments TEMPUS XF Routine 07/14/2025 9:46 AM BULK SYSTEM OPERATOR Mass of upper lobe of right lung PULMONARY FUNCTION TEST Routine 07/11/2025 9:51 AM BULK SYSTEM OPERATOR Lung mass Mediastinal adenopathy PULMONARY FUNCTION TEST Stat 07/10/2025 12:55 PM BULK SYSTEM OPERATOR Lung mass Mediastinal adenopathy Procedure Note - 07/10/2025 12:55 PM CSTThis note is in progress. [facility] [address] [facility], [place] [address] Test Date: 2025-07-10 Pat Name: SHAHEED DIXON Department: Room: Gender: Machine Tool Operator: : 1965 Requested By: LIZ RILEY Order Number: [id number] Leo MD: Interpretive Statements 2.89 TEMPUS XT NORMAL BLOOD Routine 11:42 AM BULK SYSTEM OPERATOR Mass of upper lobe of right lung PROCEDURE REPORT 06/21/2025 11:10 AM BULK SYSTEM OPERATOR XR CHEST PA OR AP 1 VW Stat 10:10 AM BULK SYSTEM OPERATOR PATHOLOGY Pathology 06/21/2025 9:40 AM BULK SYSTEM OPERATOR CYTOLOGY, NON GYNE Pathology 06/21/2025 9: 40 AM BULK SYSTEM OPERATOR HISTOPLASMA PCR Routine 06/21/2025 9:40 AM BULK SYSTEM OPERATOR ASPERGILLUS ANTIGEN, BRONCHOALVEOLAR LAVAGE Routine 06/21/2025 9:40 AM BULK SYSTEM OPERATOR FUNGUS CULTURE, OTHER Routine 06/21/2025 9:40 AM BULK SYSTEM OPERATOR FUNGUS CULTURE, OTHER Routine 06/21/2025 9:40 AM BULK SYSTEM OPERATOR AFB CULTURE WITH STAIN Routine 9:40 AM BULK SYSTEM OPERATOR AFB CULTURE WITH STAIN Routine 9:40 AM BULK SYSTEM OPERATOR RESPIRATORY CULTURE WITH GRAM STAIN Routine 06/21/2025 9:40 AM BULK SYSTEM OPERATOR RESPIRATORY CULTURE WITH GRAM STAIN Routine 06/21/2025 9:40 AM BULK SYSTEM OPERATOR XR FLUORO LESS THAN 1 HOUR Routine 06/21/2025 9:17 AM BULK SYSTEM OPERATOR PET BONE IMG W CT SKL BSE MID THG Routine 05/29/2025 12:39 PM CDT from Last 3 Months Results * TEMPUS XF (07/14/2025 9:46 AM BULK SYSTEM OPERATOR) Reason for Study To identify mutations relevant to patient's cancer. 07/14/2025 9:46 AM BULK SYSTEM OPERATOR [facility] Genetic Diseases Assessed Cancer 07/14/2025 9:46 AM BULK SYSTEM OPERATOR [facility] Description of Ranges of DNA Sequences Examined 105 gene liquid biopsy 07/14/2025 9:46 AM BULK SYSTEM OPERATOR [facility] Overall Interpretation positive 07/14/2025 9:46 AM BULK SYSTEM OPERATOR [facility] https://clinic al-portal.[employer]p atient/[email or web address]-[email or web address] [email or web address] a/reports/[email or web address] -[email or web address] 28bb 07/14/2025 9:46 AM BULK SYSTEM OPERATOR [facility] Comment:[facility] link Low Coverage Regions ERRFI1, TERT 07/14/2025 9:46 AM BULK SYSTEM OPERATOR [facility] Therapy Count 1 07/14/2025 9:46 AM BULK SYSTEM OPERATOR [facility]: Potential Therapy 1 Gene: 8975^PIK3CA^HG NC Variant: p.V8260O Match Type: snvIndel Match Type Description: PIK3CA p.V4070B Agent: Alpelisib Drug Class: PI3K Inhibitor Tissue: Solid Tumors Association: Response Evidence Status: Clinical research Evidence ID: [id number] Evidence URL: https://www.ct bi.nlm.nih.gov /pubmed/637259 02 Evidence Title: https://www.ct bi.nlm.nih.gov /pubmed/846996 02 KDB Variant: Nnta-iu-fthvui on Label: FDA Off Label FDA Approved?: Yes On label?: No 07/14/2025 9:46 AM BULK SYSTEM OPERATOR [facility] Trial Count 3 07/14/2025 9:46 AM BULK SYSTEM OPERATOR [facility]: Clinical Trial Match 1 Clinical Trial NCT ID: [id number] Clinical Trial Title: Envch-td-Puopy Study of Mutant-selecti ve PI3K Inhibitor, RLY-2608, as a Single Agent in Patients With Advanced Solid Tumors and in Combination With Endocrine Therapy +/- a CDK4/6 or CDK4 Inhibitor in Patients With Advanced Solid Tumors or Advanced Breast Cancer Clinical Trial URL: https://clinic altrials.gov/c t2/show/BUP914 13568 Clinical Phase: Phase 1 Clinical Trial Matches: PIK3CA p.D2356G mutation Clinical Trial Distance and Location: [address] [place], [place] 07/14/2025 9:46 AM BULK SYSTEM OPERATOR [facility]: Clinical Trial Match 2 Clinical Trial NCT ID: [id number] Clinical Trial Title: FOG-001 in Locally Advanced or Metastatic Solid Tumors Clinical Trial URL: https://clinic altrials.gov/c t2/show/OSK798 70283 Clinical Phase: Phase 1/Phase 2 Clinical Trial Matches: APC c.1627-1G>T mutation Clinical Trial Distance and Location: [address] [place], [place] 07/14/2025 9:46 AM BULK SYSTEM OPERATOR [facility]: Clinical Trial Match 3 Clinical Trial NCT ID: [id number] Clinical Trial Title: IACS-6274 With or Without Bevacizumab and Paclitaxel for the Treatment of Advanced Solid Tumors Clinical Trial URL: https://clinic altrials.gov/c t2/show/YTC497 98029 Clinical Phase: Phase 1 Clinical Trial Matches: KEAP1 p.F305fs mutation, PTEN c.165-1G>T mutation Clinical Trial Distance and Location: [address] [place], [place] 07/14/2025 9:46 AM BULK SYSTEM OPERATOR [facility] Tumor Mutational [place] 21.7 m/MB 07/14/2025 9:46 AM BULK SYSTEM OPERATOR [facility] Microsatellite Instability Note MSI-High not detected 07/14/2025 9:46 AM BULK SYSTEM OPERATOR [facility] Blood specimen (specimen) 07/07/2025 10:10 PM BULK SYSTEM OPERATOR Narrative This result has genomic variants that were not included in this document. Romie Long MD MOLECULAR ORDERABLES Final Resu lt [facility] [address] [facility] [place] [facility], [address] [place] [address], [facility] [address] [facility] [address] [facility], [address] [place] [address] * PULMONARY FUNCTION TEST (07/11/2025 9:51 AM BULK SYSTEM OPERATOR) 07/11/2025 9:51 AM BULK SYSTEM OPERATOR Narrative INTERFACE SYSTEM - 07/13/2025 2:37 PM [place] [address] Test Date: 2025-07-11 Pat Name: SHAHEED DIXON Department: Room: Gender: F Machine Tool Operator: : 1965 Requested By: BEN FRANCIS Order Number: [id number] Leo MD: Alex Holt Interpretive Statements This patient is a 59 year old Female, height 155.96 cm. and weight of 66.68 kgs. The indication for the pulmonary function test is Lung nodule. LUNG VOLUMES reveal a total lung capacity (TLC) of 3.72 L, 0 % predicted. Residual volume (RV) is 1.61 L, 101 % predicted, RV/TLC ratio is 43 %. Technologist's Comments: None. Lung volumes obtained via N2 washout. Impresssion: Mild restrictive ventilatory defect. Electronically Signed On 07-13-2025 14:37:51 BULK SYSTEM OPERATOR by Alex Holt Procedure Note Provider, Historical - 07/13/[address] [address] Test Date: 2025-07-11 Pat Name: SHAHEED DIXON Department: Room: Gender: F Machine Tool Operator: : 1965 Requested By: BEN FRANCIS Order Number: [id number] Reading MD: Alex Holt Interpretive Statements This patient is a 59 year old Female, height 155.96 cm. andweight of 66.68 kgs. The indication for the pulmonary function test is Lungnodule. LUNG VOLUMES reveal a total lung capacity (TLC) of 3.72 L, 0 % predicted. Residual volume (RV) is 1.61 L, 101 % predicted, RV/TLC ratio is 43 %. Technologist's Comments: None. Lung volumes obtained via N2 washout. Impresssion: Mild restrictive ventilatory defect. Electronically Signed On 07-13-2025 14:37:51 BULK SYSTEM OPERATOR by Alex Holt Ben Francis MD PFT ORDERABLES Final Result Performing Organization Address City/[facility] de Phone Number INTERFACE SYSTEM Refer to clinic/hospital department * [facility] XT NORMAL BLOOD (07/04/2025 11:42 AM BULK SYSTEM OPERATOR) [facility] 07/04/2025 11:00 PM BULK SYSTEM OPERATOR [facility] Comment:See NGS Report for R esults. Blood specimen (specimen) 07/04/2025 11:42 AM BULK SYSTEM OPERATOR 07/04/2025 11:44 AM BULK SYSTEM OPERATOR Romie Long MD MOLECULAR ORDERABLES Final Resu lt Performing Organization Address City/State/[facility] de Phone Number [facility] [address] [facility] [address] [facility], [address] [place] [address], [facility] [address] [facility] [address] [facility], [address] [place] [address] * PROCEDURE REPORT (06/21/2025 11:10 AM BULK SYSTEM OPERATOR) Narrative Procedure Note Chuck Khalil MD - 06/21/2025 11:09 AM CST [facility] Pulmonology Patient Name: Shaheed Dixon Procedure Date: 06/21/2025 Date of : 1965 [...] 06/21/2025 7:[address]; [place] [address] Chuck Khalil MD PROCEDURE/MINOR SURGICAL ORDE RABLES Final Result * XR CHEST PA OR AP 1 VW (06/21/2025 10:10 AM BULK SYSTEM OPERATOR) Anatomical Region Laterality Modality Chest Computed Radiogr aphy 06/21/2025 11:0 3 AM BULK SYSTEM OPERATOR Impressions 06/21/2025 11:10 AM BULK SYSTEM OPERATOR IMPRESSION: Grossly unchanged appearance of the right upper lobe mass. No pneumothorax. DICTATION LOCATION: Location 1 - [facility] 06/21/2025 11:10 AM BULK SYSTEM OPERATOR EXAM: XR CHEST PA OR AP 1 [...] lobe mass. No pneumothorax. DICTATION LOCATION: Location [address] [place] [address] Chuck Khalil MD DIAGNOSTIC IMAGING ORDERABLES Final Result * HISTOPLASMA PCR (06/21/2025 9:40 AM BULK SYSTEM OPERATOR) Pathologist [facility] SOURCE BAL 06/24/2025 2:36 AM BULK SYSTEM OPERATOR [facility] HISTOPLASMA CAPSULATUM DNA NOT DETECTED 06/24/2025 2:36 AM BULK SYSTEM OPERATOR [facility] Comment: REFERENCE RANGE: NOT DETECTED This test was developed and its analytical performance characteristics have been determined by [facility]. It has not been cleared or approved by FDA. This assay has been validated pursuant to the CLIA regulations and is used for clinical purposes. BAL (Lung, RUL) Collection / Unknown 06/21/2025 9:40 AM BULK SYSTEM OPERATOR 06/21/2025 11:07 AM BULK SYSTEM OPERATOR Narrative [facility] - 06/24/2025 2:36 AM BULK SYSTEM OPERATOR Performing Organization Information: Site ID: EZ Name: [facility], Address: [address] [place] [address] Director: Gregoria Layton MD,PhD,MANOJ Result [facility] Chuck Khalil MD BODY FLUIDS AND STOOLS Final Result Performing Organization Address City/State/[facility] Co de Phone Number [facility] [phone] * ASPERGILLUS ANTIGEN, BRONCHOALVEOLAR LAVAGE (06/21/2025 9:40 AM BULK SYSTEM OPERATOR) Pathologist [facility] ASPERGILLUS GALACTOMANAN INDEX <0.50 06/24/2025 5:16 PM BULK SYSTEM OPERATOR [facility] ASPERGILLUS GALACTOMANNAN AG NOT DETECTED 06/24/2025 5:16 PM BULK SYSTEM OPERATOR [facility] Comment: REFERENCE RANGE: <0.50 NOT DETECTED RESULT [...] RUL) Collection / Unknown 06/21/2025 9:40 AM BULK SYSTEM OPERATOR 06/21/2025 11:07 AM BULK SYSTEM OPERATOR Narrative [facility] - 06/24/2025 5:16 PM BULK SYSTEM OPERATOR Performing Organization Information: Site ID: EZ Name: [facility], Address: [address] [place] [address] Director: Gregoria Layton MD,PhD,MANOJ Chuck Khalil MD MICROBIOLOGY - GENERAL ORDERA BLES Final Result Performing Organization Address City/State/[facility] Co de Phone Number [facility] [phone] * PATHOLOGY (06/21/2025 9:40 AM BULK SYSTEM OPERATOR) CASE REPORT Surgical Pathology Report Case: [id number] Authorizing Provider: Chuck Khalil MD Collected: 06/21/2025 09:40 AM Ordering Location: [facility] Received: 06/21/2025 11:07 AM [facility] Interventional Care Pathologist: Betty Sebastian MD Specimen: Lung, RUL, Transbronchial bx 7:44 AM BULK SYSTEM OPERATOR [facility] ADDENDUM 1 A request for [facility] was received on 07/04/[address] Romie Long. Testing will be performed on the concomitant cytology material [id number], which is more cellular. 7:44 AM BULK SYSTEM OPERATOR [facility] Addendum electronically signed by Betty Sebastian MD on 07/06/2025 at 0744 BULK SYSTEM OPERATOR FINAL DIAGNOSIS Lung, right upper lobe, transbronchial biopsy: - Non-small cell carcinoma, favor adenocarcinoma of lung origin - See corresponding cytology [id number] 7:44 AM BULK SYSTEM OPERATOR [facility] at 1726 BULK SYSTEM OPERATOR DIAGNOSIS COMMENT Molecular studies (e.g. ALK, ROS1 and eGFR) will be performed upon request. 5 7:44 AM [facility] GROSS DESCRIPTION Received in one container labeled Shaheed Dixon and transbronchial biopsy RUL are 6 irregular fragments of pink-abarca to red tissue ranging from 0.1 x 0.3 cm in greatest dimension. Entirely submitted in cassettes labeled A1 and A2. SMB 5 7:44 AM [facility] MICROSCOPIC DESCRIPTION The slides are labeled [id number] and Shaheed Dixon. Sections from the right upper lobe transbronchial [...] carcinoma, favoring adenocarcinoma of the lung. 5 7:44 AM [facility] CLINICAL INFORMATION Lung mass, adenopathy No Dx found. 5 7:44 AM [facility] COMMENT Special stain, immunohistochemical, and/or in situ hybridization results are interpreted with controls that demonstrate appropriate staining reactions. Note on use of immunohistochemistry reagents and in situ hybridization probes: These tests were developed and their performance characteristics determined by [facility], Department of Laboratory Medicine. It has not [...] part or completely in the following laboratories: [facility], CLIA #[id number] [address] [place] [address] [facility], [place] #[id number] [address] [place] [address] [facility], CLIA #[id number] [address] [facility] [place] [address] This report was created with the [employer] voice-activated dictation system. Inherent to this system is the possibility of syntax, grammar, punctuation and other errors that could impact the interpretation of the report. If there are interpretative questions about aspects of this report, please contact the performing pathologist. 7:44 AM [facility] Tissue (Lung, RUL) Collection / Unknown 06/21/2025 9:40 AM BULK SYSTEM OPERATOR 06/21/2025 11:07 AM BULK SYSTEM OPERATOR Chuck Khalil MD PATHOLOGY/CYTOLOGY ORDERABLES Edited Result - Final Performing Organization Address City/[facility] Co de Phone Number [facility] [id number] [address] [place] [address] * RESPIRATORY CULTURE WITH GRAM STAIN (06/21/2025 9:40 AM BULK SYSTEM OPERATOR) Only the most recent of2 resultswithin the time period is included. CULTURE No pathogens isolated. Normal respiratory samuel present. 06/23/2025 7:42 AM [facility] GRAM STAIN Non diagnostic pattern 06/23/2025 7:42 AM [facility] GRAM STAIN 1+ (Rare or Occasional) Polymorphonuclear WBC 06/23/2025 7:42 AM [facility] Washings SPECIMEN FROM LUNG / Unknown Collection / Unknown 06/21/2025 9:40 AM BULK SYSTEM OPERATOR 06/21/2025 11:07 AM BULK SYSTEM OPERATOR Chuck Khalil MD MICROBIOLOGY - GENERAL ORDERA BLES Final Result Performing Organization Address City/[facility]/ZIP Co de Phone Number [facility]# [id number] [place] [address] * CYTOLOGY, NON GYNE (06/21/2025 9:40 AM BULK SYSTEM OPERATOR) CASE REPORT Medical Cytology Report Case: [id number] Authorizing Provider: Chuck Khalil MD Collected: 06/21/2025 09:40 AM Ordering Location: [facility] [address] Received: 06/21/2025 11:13 AM [facility] Interventional Care Pathologist: Betty Sebastian MD Specimens: A) - Fine needle aspirate, lung, RUL B) - Fine needle aspirate, lymph node, Station 11R C) - Fine needle aspirate, lymph node, Station 4R D) - Fine needle aspirate, lymph node, Station 7 E) - Bronchial brushing, RUL 8:05 AM [facility] ADDENDUM 3 This addendum was created in error. 8:05 AM [facility] Addendum electronically signed by Betty Sebastian MD on 07/09/2025 at 0804 BULK SYSTEM OPERATOR ADDENDUM 2 A request for [facility] was received on 07/04/[address] Romie Long. This test will performed on tissue from case [id number], as it is more cellular than the concomitant surgical material [id number]. The case report, slides, and blocks for this case were retrieved from archives. The pathologist reviewed the original pathology report, examined candidate slides, and selected the most appropriate block (A2). This selected material was forwarded to [facility] where the test was performed. The final report will be issued directly to the requesting physician. 8:05 AM [facility] Addendum electronically signed by Betty Sebastian MD on 07/06/2025 at 1117 BULK SYSTEM OPERATOR ADDENDUM 1 Molecular studies (e.g. ALK, ROS1, and eGFR) will be performed upon request. 8:05 AM [facility] Addendum electronically signed by Thu Corral MD on 06/22/2025 at 1723 BULK SYSTEM OPERATOR FINAL DIAGNOSIS Lung, right upper lobe, EBUS FNA, smears, ThinPrep and cellblock: - Positive for malignancy; non-small cell carcinoma, favor adenocarcinoma of lung origin, rare cells - See corresponding biopsy [id number] Lymph node, station 11R, EBUS FNA, smears, [...] cell carcinoma, favor adenocarcinoma of lung origin 8:05 AM [facility] at 1722 BULK SYSTEM OPERATOR GROSS DESCRIPTION Received are 5 containers all labeled Shaheedparesh Dixon. The first specimen (A) is additionally labeled [...] mL of CytoLyt fluid. One ThinPrep made. 8:05 AM [facility] MICROSCOPIC DESCRIPTION The slides are labeled [id number] and Shaheed Dixon. The immediate assessments are confirmed. The smears, [...] the 11R lymph node fine-needle aspiration. 5 8:05 AM [facility] IMMEDIATE ASSESSMENT Lung, right upper lobe, fine-needle aspiration: - Pass #1 unsatisfactory - Pass #2 satisfactory Lymph node, 11R, fine-needle aspiration: - Pass #3 satisfactory - Pass #[address] 5 8:05 AM BULK SYSTEM OPERATOR [facility] CLINICAL INFORMATION Lung mass, adenopathy No Dx found. 5 8:05 AM BULK SYSTEM OPERATOR [facility] COMMENT Special stain, immunohistochemical, and/or in situ hybridization results are interpreted with controls that demonstrate appropriate staining reactions. Note on use of immunohistochemistry reagents and in situ hybridization probes: These tests were developed and their performance characteristics determined by [facility], Department of Laboratory Medicine. It has not [...] part or completely in the following laboratories: [facility], CLIA #[id number] [address] [place] [id number] [place] [address]/[facility], CLIA #[id number] [place] [address]. 5 8:05 AM [facility] Body fluid (Fine needle aspirate, lung) Collection / Unknown 06/21/2025 9:40 AM BULK SYSTEM OPERATOR 06/21/2025 11:13 AM BULK SYSTEM OPERATOR Body fluid specimen (specimen) SPECIMEN FROM LYMPH NODE OBTAINED BY FINE NEEDLE ASPIRATION BIOPSY / Unknown 06/21/2025 9:40 AM BULK SYSTEM OPERATOR 06/21/2025 11:13 AM BULK SYSTEM OPERATOR Body fluid specimen (specimen) SPECIMEN FROM LYMPH NODE OBTAINED BY FINE NEEDLE ASPIRATION BIOPSY / Unknown 06/21/2025 9:40 AM BULK SYSTEM OPERATOR 06/21/2025 11:13 AM BULK SYSTEM OPERATOR Body fluid specimen (specimen) SPECIMEN FROM LYMPH NODE OBTAINED BY FINE NEEDLE ASPIRATION BIOPSY / Unknown 06/21/2025 9:40 AM BULK SYSTEM OPERATOR 06/21/2025 11:13 AM BULK SYSTEM OPERATOR Body fluid specimen (specimen) (Bronchial brushing) 06/21/2025 9:40 AM BULK SYSTEM OPERATOR 06/21/2025 11:13 AM BULK SYSTEM OPERATOR Chuck Khalil MD PATHOLOGY/CYTOLOGY ORDERABLES Edited Result - Final [facility]# [id number] [address] [place] [address] * XR FLUORO LESS THAN 1 HOUR (06/21/2025 9:17 AM BULK SYSTEM OPERATOR) Anatomical Region Laterality Modality Computed Radiogr aphy 06/21/2025 9:18 AM BULK SYSTEM OPERATOR Impressions 06/21/2025 2:03 PM BULK SYSTEM OPERATOR FINDINGS/IMPRESSION: A single intraoperative fluoroscopic C-arm spot radiographs of a portion of the chest demonstrates a bronchoscope. Please see the operative report for details. Fluoroscopy Time: 4 minutes Entrance Dose: 33.14 (mGy) DICTATION LOCATION: [address] Narrative 06/21/2025 2:03 PM BULK SYSTEM OPERATOR EXAM: XR FLUORO LESS THAN 1 HOUR [...] Entrance Dose: 33.14 (mGy) DICTATION LOCATION: Location [address] [place] [address] Chuck Khalil MD DIAGNOSTIC IMAGING ORDERABLES Final Result * PET BONE IMG W CT SKB MD (05/29/2025 12:39 PM CDT) Anatomical Region Laterality Modality Positron Emissio n Tomography (PET) Romie Long MD PE ORDERABLES Final Result from Last 3 Months Insurance MEDICARE PART A [place] B [place] Care Teams Student Education Specialist Relationship Specialty Start Date End Date Mike Holt MD [address] [place] [address] [place] [id number] PCP - General Internal Medicine 07/04/25
--- OUTSIDE RECORDS SUMMARY | 2025-07-16 00:47 | XMS_ITS | Clinical Summary ---
Author Organization [facility] Physician Of [facility] [address] [place] [id number] Care Team Providers Care Meterman Name Role Phone Gege Robertson MD Primary Care Provider [phone] Allergies Active Allergy Reactions Criticality Noted Date [...] EKG. She was subsequently evaluated by a oil lease operator who ordered a chest x-ray which [...] 07/11/2020 Assessment & Plan (07/11/2020 3:01 PM OVERLOCK WAISTLINE JOINER): S/p chest tube insertion. To Suction. Pulmonary has been consulted for which we appreciate their evaluation and recommendations. Oxygen as needed. Abnormal PET of right lung 07/11/2020 Assessment & Plan (07/11/2020 3:00 PM OVERLOCK WAISTLINE JOINER): Records to be obtained from Dr. Kennedy, Dr. Cobos and Dr. Mares's office. History of tobacco abuse. recommended for right upper lung and partial middle lobe thoracotomy per pt. Tobacco abuse 07/11/2020 Assessment & Plan (07/11/2020 3:00 PM OVERLOCK WAISTLINE JOINER): Nicotine patch ordered. Cessation encouraged. Bulging lumbar disc 07/11/2020 Assessment & Plan (07/11/2020 3:01 PM OVERLOCK WAISTLINE JOINER): Was scheduled for back surgery, now on hold for concerns of lung cancer. Prn analgesics and muscle relaxants. Gabapentin. COPD (chronic obstructive pulmonary disease) 10/2019 Assessment & Plan (07/11/2020 3:01 PM OVERLOCK WAISTLINE JOINER): Not in exacerbation. Prn duo-nebs. History of atrial fibrillation 07/11/2020 Assessment & Plan (07/11/2020 3:03 PM OVERLOCK WAISTLINE JOINER): Per anesthesia note, no prior records available for review in care everywhere or [facility]. Check ekg. Surgical History Surgery Date Site/Laterality [...] on file Legal Sex Female 9:03 PM OVERLOCK WAISTLINE JOINER Gender Identity Not on file Sexual Orientation Not on file Last Filed Vital Signs Vital Sign Reading Time Taken Comments Blood Pressure 111/72 07/17/2020 8:39 AM OVERLOCK WAISTLINE JOINER Pulse 80 07/17/2020 8:39 AM OVERLOCK WAISTLINE JOINER Temperature 36.6 C (97.9 F) 07/17/2020 8:39 AM OVERLOCK WAISTLINE JOINER Respiratory Rate 16 07/17/2020 8:39 AM OVERLOCK WAISTLINE JOINER Oxygen Saturation 94% 07/17/2020 8:39 AM OVERLOCK WAISTLINE JOINER Inhaled Oxygen Concentration - - Weight 60.8 kg (134 lb) 07/11/2020 2:10 PM OVERLOCK WAISTLINE JOINER Height 157.5 cm (5' 2) 07/11/2020 2:10 PM OVERLOCK WAISTLINE JOINER Body Mass Index 24.51 07/11/2020 2:10 PM OVERLOCK WAISTLINE JOINER Plan of Treatment Health Maintenance Due Date [...] Advance Directives For more information, please contact: [phone] * Full Code (Latest Code Status on File) Date Activated Date Inactivated Comments 07/11/2020 9:45 AM 07/11/2020 2:11 PM Care Teams Meterman Relationship Specialty [place] [id number] [address] PCP - General 05/02/20
--- OUTSIDE RECORDS SUMMARY | 2025-07-16 00:47 | XMS_ITS | Clinical Summary ---
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
[2025-07-16 10:47] VITALS: BMI 27.1
[2025-07-16 10:48] VITALS: BP 113/62; PULSE 93; RESP 14; TEMP 36.8; O2SAT 94
--- NOTE | 2025-07-16 12:03 | WPDANESEPPF ---
Anes - Initial Pre Proc Eval Procedure: Operation Date: 07/16/25 12:30 Proposed Procedures p Insertion Gaby Cath - Aron Arias MD Date/Time: 07/16/25 12:03 Surgeon: rAon Arias MD Pre Op Diagnosis: Non small cell lung ca Patient Data Age: 59 Gender: F Height: 1.56 m Weight: 66.2 kg Last Vital Signs Temp 36.8 C 07/16/25 10:48 Pulse 93 07/16/25 10:48 Resp 14 07/16/25 10:48 BP 113/62 07/16/25 10:48 Pulse Ox 94 07/16/25 10:48 O2 Del Method Room Air 07/16/25 10:48 Allergies Allergy/AdvReac Type Severity Reaction Status Date / Time Penicillins Allergy Unknown Swelling Verified 07/12/25 13:09 of Lip/Tongue/Throat levofloxacin Allergy Hives Verified 07/12/25 13:09 Home Medications ?Medication ?Instructions ?Recorded ?Confirmed ?Type carisoprodol 350 mg tablet 350 mg PO TID 11/20/22 07/12/25 History gabapentin 100 mg capsule 200 mg PO Q8H 11/20/22 07/12/25 History montelukast 10 mg tablet 10 mg PO PRN PRN Allergy Symptoms 11/20/22 07/12/25 History trazodone 50 mg tablet 50 mg PO PRN PRN Sleep 11/20/22 07/12/25 History budesonide 0.5 mg/2 mL suspension 0.5 mg (2 mL) inhalation Q12HRT 11/25/22 07/12/25 Rx for nebulization (Pulmicort) #20 mL ciprofloxacin HCl 500 mg tablet 500 mg PO BID@1200,0000 #14 tabs 11/25/22 07/12/25 Rx guaifenesin 600 mg tablet, 1,200 mg (2 x 600 mg) PO Q12HR #30 11/25/22 07/12/25 Rx extended release 12 hr (Mucus tabs Relief ER) ipratropium bromide 0.02 % 0.5 mg (2.5 mL) inhalation Q6HRT 11/25/22 07/12/25 Rx solution for inhalation #75 mL levalbuterol HCl 1.25 mg/3 mL 1.25 mg (3 mL) inhalation Q6HRT 11/25/22 07/12/25 Rx solution for nebulization #75 mL nicotine 14 mg/24 hr daily 1 patch transdermal QAM #28 ea 11/25/22 07/12/25 Rx transdermal patch prednisone 10 mg tablet 10 mg PO DAILY #63 tabs 11/25/22 07/12/25 Rx baclofen 10 mg tablet 10 mg PO PRN 07/12/25 07/12/25 History cholecalciferol (vitamin D3) 1,250 50,000 unit PO WEEKLY 07/12/25 07/12/25 History mcg (50,000 unit) capsule Patient hx anesthesia problems: none Family hx anesthesia problems: none Results Review: All pre-operative results and documents have been reviewed as part of the pre-operative evaluation. [facility] Past Medical History Medical History Chronic obstructive pulmonary disease Emphysema lung Tobacco dependence Chronic back pain Surgical History Surgical History History of lung biopsy Benign pathology. History of tubal ligation History of section History of partial hysterectomy Family History Family History Mother Multiple myeloma Father Asthma Social History Social History Social History: Surrogate medical decision maker: Yann Lambert, son. Code status: Full code. Smoking packs per day: 1 Smoking cigarettes per day: 20.0 Years smoked: 42 Smoking pack-years: 42.00 Smoking status: Former smoker Tobacco type: cigarettes Second hand tobacco smoke exposure: No Smoking end date: 08/09/23 Alcohol intake: never Substance use: never Lack of Transportation: No Lack of Food: Never True Current Housing: I Have Housing Concerned About Future Housing: No Difficulty Paying Gas/Electric Bills: No Difficulty Paying for Meds: No Currently Unemployed: No Education: Associate Degree Difficulty w/ Childcare or Family Care: No Additional living arrangements comments: Lives in [place] with her dog. Spiritual care concerns: No Anes - Eval Final PreProcedure Day of Procedure 07/16/25 12:03 Patient weight: overweight Heart: regular rate and rhythm Lungs: clear to auscultation Airway: Mallampati scale class II Neurological: alert and oriented Last oral intake: >/= 8 hours ASA classification: III Emergent: no Anesthetic plan: proceed Anesthesia type and monitoring: general GIVS and standard monitoring Results Review: All pre-operative results and documents have been reviewed as part of the pre-operative evaluation. Informed Consent: The patient's anesthetic plan and its attendant risks and benefits were discussed with the patient/family/POA. Questions were solicited and answers provided to the satisfaction of the patient/family/POA.
--- NOTE | 2025-07-16 12:45 | PM.IMHP2 ---
H&P: HPI History of Present Illness Date/Time: 07/16/25 12:45 Chief Complaint: Right upper lobe lung cancer Narrative: Patient is a 59-year-old female who has a history of emphysema and was recently diagnosed with a spiculated mass in the upper lobe of the right lung. Reveals this to be consistent with primary lung cancer. She is to undergo chemo and radiation therapy. She presents today for placement crissy catheter for the chemotherapy. Review of Systems Review of Systems: The remainder of the review of systems to include constitutional, HEENT, cardiovascular, respiratory, GI, , integumentary, musculoskeletal, endocrine, immunologic, hematologic, psychiatric, and neurologic are all negative except for which is mentioned above in the HPI. [facility] Past Medical History Medical History Chronic obstructive pulmonary disease Emphysema lung Tobacco dependence Chronic back pain Surgical History Surgical History History of lung biopsy Benign pathology. History of tubal ligation History of section History of partial hysterectomy Family History Family History Mother Multiple myeloma Father Asthma Social History Social History Social History: Surrogate medical decision maker: Yann Lambert, son. Code status: Full code. Smoking packs per day: 1 Smoking cigarettes per day: 20.0 Years smoked: 42 Smoking pack-years: 42.00 Smoking status: Former smoker Tobacco type: cigarettes Second hand tobacco smoke exposure: No Smoking end date: 08/09/23 Alcohol intake: never Substance use: never Lack of Transportation: No Lack of Food: Never True Current Housing: I Have Housing Concerned About Future Housing: No Difficulty Paying Gas/Electric Bills: No Difficulty Paying for Meds: No Currently Unemployed: No Education: Associate Degree Difficulty w/ Childcare or Family Care: No Additional living arrangements comments: Lives in [place] with her dog. Spiritual care concerns: No Meds Home Medications and Allergies Home Medications ?Medication ?Instructions ?Recorded ?Confirmed ?Type carisoprodol 350 mg tablet 350 mg PO TID 11/20/22 07/12/25 History gabapentin 100 mg capsule 200 mg PO Q8H 11/20/22 07/12/25 History montelukast 10 mg tablet 10 mg PO PRN PRN Allergy Symptoms 11/20/22 07/12/25 History trazodone 50 mg tablet 50 mg PO PRN PRN Sleep 11/20/22 07/12/25 History budesonide 0.5 mg/2 mL suspension 0.5 mg (2 mL) inhalation Q12HRT 11/25/22 07/12/25 Rx for nebulization (Pulmicort) #20 mL ciprofloxacin HCl 500 mg tablet 500 mg PO BID@1200,0000 #14 tabs 11/25/22 07/12/25 Rx guaifenesin 600 mg tablet, 1,200 mg (2 x 600 mg) PO Q12HR #30 11/25/22 07/12/25 Rx extended release 12 hr (Mucus tabs Relief ER) ipratropium bromide 0.02 % 0.5 mg (2.5 mL) inhalation Q6HRT 11/25/22 07/12/25 Rx solution for inhalation #75 mL levalbuterol HCl 1.25 mg/3 mL 1.25 mg (3 mL) inhalation Q6HRT 11/25/22 07/12/25 Rx solution for nebulization #75 mL nicotine 14 mg/24 hr daily 1 patch transdermal QAM #28 ea 11/25/22 07/12/25 Rx transdermal patch prednisone 10 mg tablet 10 mg PO DAILY #63 tabs 11/25/22 07/12/25 Rx baclofen 10 mg tablet 10 mg PO PRN 07/12/25 07/12/25 History cholecalciferol (vitamin D3) 1,250 50,000 unit PO WEEKLY 07/12/25 07/12/25 History mcg (50,000 unit) capsule Allergies Allergy/AdvReac Type Severity Reaction Status Date / Time Penicillins Allergy Unknown Swelling Verified 07/12/25 13:09 of Lip/Tongue/Throat levofloxacin Allergy Hives Verified 07/12/25 13:09 Vital Signs Vital Signs - 24 hr 07/16/25 10:48 Temperature 36.8 C Pulse Rate 93 Respiratory Rate 14 Blood Pressure 113/62 Pulse Oximetry 94 Oxygen Delivery Room Air Exam Const: General: comfortable and no acute distress HENMT: Ears: TM's normal bilaterally Face/Nose/Sinus: Normal nares present Mouth: Yes moist mucous membranes Eyes: General: appearance normal, both eyes and all related structures Sclera: sclerae normal Pupils: Equal, round and reactive pupils present EOM: EOMs intact bilaterally Neck: Neck: supple and no JVD Chest: Other: No rashes or masses in the upper anterior chest bilaterally. Bilateral clavicles symmetric. Resp: Effort & Inspection: normal respiratory effort Auscultation: clear to auscultation bilaterally Cardio: Rate: regular rate Rhythm: regular rhythm GI: GI Palp: Yes Soft to palpation, No Firmness to palpation present (GI), No Tenderness to palpation present (GI) and No Guarding due to palpation present (GI) Skin: General skin exam: normal color and no rashes or lesions noted Neuro: General: gait normal Speech: normal speech Motor exam (neuro): 5/5 motor strength present throughout Extrem: General: normal to inspection Psych: Mental Status: mental status grossly normal Affect: normal affect Assessment and Plan Assessment and plan (1) Cancer of right lung: Code(s): C34.91 - Malignant neoplasm of unspecified part of right bronchus or lung Status: Acute Assessment and Plan: Patient presents today for placement of crissy catheter for administration chemotherapy to treat her lung cancer. Her tumor is in the right long and so we will plan on initial placement in the right subclavian or right internal jugular vein. If that is unsuccessful then placed on left side would be backup plan. Risks, benefits, indications, and expected outcomes were discussed with the patient. Specific risks such as bleeding needing a blood transfusion or iatrogenic pneumothorax requiring placement of chest tube in the hospitalization after placement the chest tube was discussed. She understands and wishes to proceed with surgery.
--- NOTE | 2025-07-16 12:49 | WPDHPUPDATE1 ---
History and Physical Update Update Date/Time: 07/16/25 12:49 History and Physical has been reviewed, including an updated exam of the patient. There are NO changes in the patient's condition. Risks, benefits, and alternatives have been discussed and questions answered. Patient agrees to proceed with procedure.
[2025-07-16] MEDS: ceFAZolin 2 GM in SODIUM CHLORIDE 0.9% IV 50 ML 100 ML IVPB (13:12)
[2025-07-16] MEDS: LIDO 1%/EPINEPHRINE 1:100,000 20 ML VIAL 30 ML INFILTRATE (13:41)
[2025-07-16 14:28] VITALS: BP 105/50; PULSE 75; O2SAT 99
[2025-07-16] MEDS: LACTATED RINGERS 1,000 ML 30 ML IV CONT (14:28)
[2025-07-16 14:30] VITALS: BP 96/61; PULSE 76; O2SAT 97
[2025-07-16 15:00] VITALS: BP 137/65; PULSE 79
[2025-07-16] MEDS: oxyCODONE HCL (*CRX) 5 MG TAB IR PO (15:21)
[2025-07-16 15:30] VITALS: BP 122/59; PULSE 71
[2025-07-16 16:00] VITALS: BP 110/62; PULSE 71
--- NOTE | 2025-07-17 08:25 | P.OP_ITS ---
Procedure Note - Detailed Date of Procedure 07/17/25 Pre-op Diagnosis Non-small cell right lung cancer Post-op Diagnosis Same Procedure Performed Placement of right subclavian vein single-lumen port a catheter with intraoperative fluoroscopy Surgeon Aron Arias MD Ceramic Artist STEFANIE Broderick Anesthesia MAC Indications patient is a 59-year-old female who presented after having been found with a large right upper lobe mass. This was biopsied and found to be non-small cell lung cancer. She is to undergo chemo radiation therapy. She presents today for placement crissy catheter. Findings None none Description of Procedure After informed consent was obtained patient brought to the operating room she was placed supine position and IV sedation was administered by anesthesia. The bilateral upper anterior neck and chest was then prepped and draped usual sterile fashion. A time-out was then performed correctly identifying the patient as well as procedure to be performed. She was given perioperative IV antibiotics. I 1st attempted placement of the catheter into the right internal jugular vein. I palpated between the 2 heads of the right sternocleidomastoid muscle injected local anesthetic mixture in this area. A long 18gauge spinal needle was then used to try to cannulate the right internal jugular vein. Fortunately on 2 attempts I cannulated the right carotid artery. Pressure was held the area to achieve hemostasis and prevent hematoma formation. I then switched my approach to try to cannulate the right subclavian vein. I made a transverse incision just below the medial 3rd of the right clavicle with a scalpel after anesthetizing this area. Dissection carried down through the subcu tissue electrocautery. Once I reached the anterior pectoralis fascia I then created a subcutaneous port pocket inferior to the incision with blunt finger electrocautery dissection. Through this incision I then percutaneously cannulated the right subclavian vein on the 2nd pass without difficulty. A guidewire was advanced through the needle into the right subclavian vein subsequent down into the superior vena cava. Intraoperative fluoroscopy was used to confirm the proper placement of the guidewire. I then proceeded to advanced dilators and breakaway sheath over the guidewire. The guidewire and dilator were removed leaving the sheath in place. A 9.6 [place] single-lumen silastic catheter was then advanced through the sheath into the right subclavian vein and subsequent down into the right atrium of the heart. This sheath was then torn away leaving the catheter in place. Intraoperative fluoroscopy was then used to visualize the tip of the catheter that pulled back on the catheter externals the chest wall to the tip was in the distal superior vena cava. I then cut the catheter to the appropriate length at the skin level and attached to the titanium Smart Port. The Smart port was then secured in subcutaneous port pocket on 3 sides with 3-0 Prolene sutures. I then irrigated out the port pocket sterile saline solution hemostasis was good. I then accessed the port with the [place] needle and it aspirated blood easily. It was then flushed with heparinized saline solution. I then close incision utilizing interrupted 3-0 Vicryl sutures in the subcutaneous tissues. The skin edges were then approximated utilizing a running subcuticular 4-0 Monocryl suture. Lastly the port was accessed percutaneously and aspirated blood again easily. It was then flushed with 5000units of IV heparin. Incision was then dressed with skin glue. The patient tolerated the procedure well no complications. All sponges, needles, and instrument counts were correct at the end procedure. EBL was _30__cc. The patient was awakened and taken to recovery in stable and satisfactory condition. In the recovery room chest x-ray was obtained and the tip of the catheter appeared to be in good position in the distal superior vena cava. There was no obvious evidence of a pneumothorax. Implants 9.6 [place] single-lumen silastic catheter attached to titanium Smart port right subclavian vein. Estimated Blood Loss 30 Packing No Pathology None sent Complications No immediate complications Condition Stable Disposition PACU [facility] Billing Surgery - Charge Forward: Surgery Billing
== END 2025-07-16 16:12 | disposition home or self-care (01) ==
PROVIDERS: PCP Internal Medicine; Visit Provider Surgery
PROC: (CPT 36561; principal; 2025-07-16 12:30)
DX: C34.91 Malignant neoplasm of unspecified part of right bronchus or lung (principal); J44.9 Chronic obstructive pulmonary disease, unspecified; G89.29 Other chronic pain; M54.9 Dorsalgia, unspecified; Z79.51 Long term (current) use of inhaled steroids; Z79.52 Long term (current) use of systemic steroids; Z98.890 Other specified postprocedural states; Z98.51 Tubal ligation status; Z87.891 Personal history of nicotine dependence; Z80.7 Family history of other malignant neoplasms of lymphoid, hematopoietic and related tissues
CPT/HCPCS: 36561; 77001; J0690; A9270; C1788; J1644; J2003; J2004; J2250; J2704; J3010; J7030; J7120